=== PATIENT | male | born 1935 | race Asian ===

== ENCOUNTER 2022-08-11 23:28 | Inpatient (IN) | payer MEDICARE, MEDICAID, SELFPAY ==
--- NOTE | 2022-08-11 00:15 | RAD_ITS ---
INDICATION: dyspnea EXAMINATION/TECHNIQUE: X-RAY - XR Chest 1 View AP portable. 12:12 AM. COMPARISON: None. FINDINGS: LINES/DEVICES: Indwelling central venous catheter tip in the region of the SVC/right atrial junction. LUNGS: Consolidation in the left lung base. Patchy opacity in the right lung base. Small bilateral pleural effusions, greater on the left. No pneumothorax. MEDIASTINUM: Aorta tortuous and atherosclerotic. CARDIAC SILHOUETTE: Not enlarged. BONES AND SOFT TISSUES: No acute abnormalities. RAD/Chest 1 View (Portable) IMPRESSION: Left basilar consolidation and possible pneumonia. Small bilateral pleural effusions. Minimal right basilar atelectasis. Electronically Signed: Beverly Reid MD at 0:46 EST ,
[2022-08-11 23:30] VITALS: BP 109/65; PULSE 123; RESP 27; TEMP 37.2; O2SAT 98; BMI 22.7
[2022-08-11 23:36] VITALS: BP 109/65; PULSE 124; RESP 27; TEMP 37.1; O2SAT 98
--- NOTE | 2022-08-11 23:51 | EKG12_ITS ---
Test Reason : sob Blood Pressure : / mmHG Vent. Rate : 123 BPM Atrial Rate : 123 BPM P-R Int : 158 ms QRS Dur : 096 ms QT Int : 320 ms P-R-T Axes : 074 068 130 degrees QTc Int : 458 ms Sinus tachycardia with occasional Premature ventricular complexes Moderate voltage criteria for LVH, may be normal variant ( Sokolow-Aguilar , Willy product ) Nonspecific ST and T wave abnormality Abnormal ECG Confirmed by TOMASA GUPTA, ARTURO ([id number]), copy editor ARELIS LOGAN ([id number]) on 08/13/2022 1:19:23 PM Referred By: Confirmed By:ARTURO RANDOLPH MD
[2022-08-12] VITALS (29 sets, daily range): BP systolic 100–157; BP diastolic 63–87; PULSE 60–123; RESP 12–27; TEMP 36.6–37.2; O2SAT 95–100; BMI 21.0
[2022-08-12 00:20] LABS: Absolute Lymphocyte Count 1.57 X10^3/uL (0.83-4.51); Absolute Neutrophil Count 4.6 X10^3/uL (2.0-7.7); Basophil# 0.05 X10^3/uL; Basophil% 0.7 % (0-1); Eosinophil# 0.24 X10^3/uL; Eosinophils% 3.4 % (0-5); Hemoglobin 8.2 g/dL (13.0-16.5); Lymphocyte # 1.57 X10^3/ul (0.83-4.51); Lymphocyte % 22.1 % (19-41); Mean Corp Hgb Conc 30.4 g/dL (32-36); Mean Corpuscular Hgb 29.5 pg (27.0-32.0); Mean Corpuscular Volume 97.1 fL (80-94); Mean Platelet Vol. 10.1 fl (6.2-12.0); Monocyte# 0.63 X10^3/uL; Monocyte% 8.9 % (0-10); NRBC Flagged by Analyzer 0 % (0-5); Neutrophil # 4.58 X10^3/uL (2.7-7.7); Neutrophil % 64.5 % (47-70); POSITIVE MORPHOLOGY YES; Platelet Count 164 K/mm3 (150-450); RBC Distribution Width SD 74.9 fl (35.1-43.9); Red Blood Count 2.78 M/mm3 (4.6-6.2); White Blood Count 7.1 K/mm3 (4.4-11.0)
[2022-08-12 00:23] LABS: Differential Indicated SCAN CRITERIA MET
[2022-08-12 00:28] LABS: Anisocytosis 2+; Macrocytosis 1+
[2022-08-12 00:38] LABS: Anion Gap 6 (5-15); BUN 6 mg/dL (7-18); BUN/Creat Ratio 2.1 RATIO (10-20); Calcium,Total 8.5 mg/dL (8.5-10.1); Chloride 102 mmol/L (98-107); Creatinine, Serum 2.84 mg/dL (0.70-1.30); EST Glomerular Filtration Rate 23 mL/min (>60); Est Glom Filt Rate - Afr Amer 27 mL/min (>60); Estimated Creatinine Clearance 17.47 ml/min; Glucose 133 mg/dL (74-106); Magnesium 1.9 mg/dL (1.6-2.6); Phosphorus 2.1 mg/dL (2.5-4.9); Potassium 3.5 mmol/L (3.5-5.1); Sodium Level 138 mmol/L (136-145)
[2022-08-12 00:46] LABS: Procalcitonin 0.62 ng/mL (0.00-0.09)
--- NOTE | 2022-08-12 01:38 | CT_ITS ---
STUDY: CTA CHEST REASON FOR EXAM: Male, 86 years old. dyspnea hx:afib,diabetes,htn,ckd-on dialysis-rt nephrectomy RADIATION DOSAGE (If Supplied By Facility): CTDIvol = ( 15.97 ) mGy, DLP = ( 426.85 ) mGycm TECHNIQUE: The examination was performed with the intravenous administration of IV 75mL Isovue-370. Post-processing of the angiographic images was performed, with multiplanar reformation and 3D reconstruction. Individualized dose optimization techniques were used for this CT. COMPARISON: None. FINDINGS: Image degradation from positioning of the arms along the sides and respiratory motion. LUNGS: Large area of consolidation in the left lower lobe. Patchy groundglass opacities in the left upper lobe/lingula. Dependent atelectasis right lower lobe. Mild bronchial wall thickening bilaterally. PLEURA: Small bilateral pleural effusions greater on the left. No pneumothorax. PULMONARY VESSELS: No definite pulmonary emboli identified. MEDIASTINUM: A few prominent lymph nodes in the mediastinum and hilar regions. HEART: Not enlarged. Small pericardial effusion. AORTA/GREAT VESSELS: Thoracic aorta is normal caliber. The ascending aorta is 3.8 cm maximal. Extensive atherosclerotic calcifications, and bulky mural plaque/thrombus particularly at the distal arch and descending aorta. No aneurysm or dissection. UPPER ABDOMEN: Right kidney not identified, with presumed bowel in the right renal fossa, and small amount of fluid in the region. BONES/SOFT TISSUES: L1 marked compression fracture of uncertain age likely subacute or chronic. OTHER: None. CT/CTA Chest W/WO Contrast IMPRESSION: 1. No evidence of pulmonary emboli. 2. Left lower lobe consolidation consistent with pneumonia. Small bilateral pleural effusions. CT imaging follow-up recommended after treatment to confirm resolution. 3. L1 compression fracture of uncertain age possibly subacute. Electronically Signed: Beverly Reid MD at 2:40 EST ,
[2022-08-12 02:04] LABS: International Normalized Ratio 1.1; Prothrombin Time (Protime)PT. 14.3 SECONDS (11.7-14.9)
[2022-08-12 02:16] LABS: Partial Thromboplast Time 44.3 Seconds (24.1-36.2)
--- NOTE | 2022-08-12 02:29 | HP.PCM.HOS_ITS ---
[facility] - General General Date of Admission: 08/12/22 Date of Service: 08/12/22 Chief Complaint: SOB HPI Narrative BONITA BEDOLLA, is a 86 M who presents with the above. Patient is 86 years old with past medical history of ESRD on hemodialysis?Saturday?Saturday?Saturday who last had dialysis on the day of admission.. Patient also has past medical history of type II DM, hypertension, history of multiple GI bleeds, chronic indwelling Alba catheter, status post right nephrectomy. Patient was recently discharged from [facility] after admission for hypotension and altered mental status noticed during dialysis. Patient's insurance did not pay for SNF so he was discharged to [facility] on 08/09/22. Patient was reportedly normal on room air. He was said to be saturating 84% in the residential placed on 5 L of oxygen. Patient is a poor historian and family members are unavailable in his room at time of being seen. His vitals in the ED showed blood pressure 109/65, heart rate 123, respiratory 27, oxygen sat 98% on 10 L of oxygen. Obesity 7.1, hemoglobin 8.2, no previous to compare, platelets is 164, INR 1.1 BMP is unremarkable except for BUN of 6, creatinine 2.84, phosphorus 4.1, magnesium 1.9. Procalcitonin is 0.62 Admitting chest x-ray shows left basilar consolidation possible pneumonia, small bilateral pleural effusion, minimal right basilar atelectasis CTA of the chest shows no evidence of PE, left lower lobe consolidation consistent with pneumonia. Small bilateral pleural effusion. L1 compression fractures of undetermined age, possibly subacute. [facility] Medical History Afib Anemia Anxiety CKD (chronic kidney disease) stage V requiring chronic dialysis COPD (chronic obstructive pulmonary disease) GI bleed Hypertension Type 2 diabetes mellitus UTI (urinary tract infection) Home Medications acetylcysteine 200 mg/mL (20 %) solution 4 ml inhalation Q4H 08/11/22 [History Last Taken Unknown] atorvastatin 40 mg tablet 40 mg PO QHS 08/11/22 [History Last Taken Unknown] darbepoetin genia-albumin 60 mcg/0.3 mL in albumin injection syringe 60 mcg QWEEK 08/11/22 [History Last Taken Unknown] ipratropium 0.5 mg-albuterol 3 mg (2.5 mg base)/3 mL nebulization soln 3 ml inhalation Q6H PRN Wheezing 08/11/22 [History Last Taken Unknown] midodrine 10 mg tablet 10 mg PO QMWF 08/11/22 [History Last Taken Unknown] pantoprazole 40 mg tablet,delayed release 40 mg PO DAILY 08/11/22 [History Last Taken Unknown] rosuvastatin 20 mg tablet 20 mg PO DAILY 08/11/22 [History Last Taken Unknown] thiamine HCl (vitamin B1) 100 mg tablet 100 mg PO DAILY 08/11/22 [History Last Taken Unknown] vitamin B complex and vitamin C no.20-folic acid 1 mg capsule 1 cap PO DAILY 08/11/22 [History Last Taken Unknown] Allergy/AdvReac Type Severity Reaction Status Date / Time No Known Allergies Allergy Verified 08/11/22 23:30 Family History unable to obtain unable to obtain Surgical History History of right nephrectomy Social History (Updated 08/12/22 @ 03:[address] Carly Edwards MD) housing: residential Smoking Status: Never smoker alcohol intake: never substance use type: does not use Vital Signs Vital Signs Vital Signs: 08/11/22 23:30 08/11/22 23:36 08/12/22 00:06 Temperature 98.9 F 98.7 F Temperature Source Temporal Temporal Pulse Rate 123 H 124 H Respiratory Rate 27 H 27 H Respiratory Effort Short of Breath Respiratory Depth Shallow Respiratory Pattern Tachypnea Blood Pressure 109/65 109/65 Blood Pressure Mean 79 79 Pulse Ox 98 98 Oxygen Delivery Method Non-Rebreather Non-Rebreather Non-Rebreather Oxygen Flow Rate (L/min) 10 10 10 Fraction of Inspired Oxygen (FIO2) 08/12/22 00:00 08/12/22 00:12 08/12/22 00:37 Temperature 98.2 F Temperature Source Temporal Pulse Rate 123 H 116 H Respiratory Rate 26 H 27 H Respiratory Effort Respiratory Depth Respiratory Pattern Tachypnea Blood Pressure 114/66 Blood Pressure Mean 82 Pulse Ox 95 98 100 Oxygen Delivery Method Bi-pap Bi-pap Oxygen Flow Rate (L/min) Fraction of Inspired Oxygen (FIO2) 80 70 70 08/12/22 01:00 Temperature Temperature Source Pulse Rate 117 H Respiratory Rate 23 H Respiratory Effort Respiratory Depth Respiratory Pattern Blood Pressure 113/68 Blood Pressure Mean 83 Pulse Ox 100 Oxygen Delivery Method Room Air Oxygen Flow Rate (L/min) Fraction of Inspired Oxygen (FIO2) 70 Weight Weight: 63.9 kg Body Mass Index (BMI) 22.7 Physical Exam Narrative Physical exam: General: Alert, appears frail, on BiPAP HEENT: Atraumatic Oral: Moist Mucosa Neck: Supple Lungs: Diminished to auscultation Cardiovascular: HS I+II, regular, no murmurs Abdomen: Bowel Sounds Present, Soft, Non Tender Extremities: Bilateral pedal edema trace Skin: No rashes, No breakdown Neurological: Grossly intact Psych/Mental Status: Appropriate Results Lab / Micro Data Result Diagrams: 08/11/22 23:40 08/11/22 23:40 Labs: Laboratory Results - last 24 hr 08/11/22 23:40: WBC 7.1, RBC 2.78 L, Hgb 8.2 L, Hct 27.0 L, MCV 97.1 H, MCH 29.5, MCHC 30.4 L, RDW Std Deviation 74.9 H, RDW Coeff of Faiza 21.0 H, Plt Count 164, MPV 10.1, Immature Gran % (Auto) 0.400, Neut % (Auto) 64.5, Lymph % (Auto) 22.1, [place] % (Auto) 8.9, Eos % (Auto) 3.4, Baso % (Auto) 0.7, Absolute Neuts (auto) 4.6, Absolute Lymphs (auto) 1.57, Nucleated RBC % 0, Anisocytosis 2+, Ma crocytosis 1+ 08/11/22 23:40: Sodium 138, Potassium 3.5, Chloride 102, Carbon Dioxide 30.0, Anion Gap 6, BUN 6 L, Creatinine 2.84 H, Estim Creat Clear Calc 17.47, Est GFR (MDRD) Af Amer 27 L, Est GFR (MDRD) Non-Af 23 L, BUN/Creatinine Ratio 2.1 L, Gl ucose 133 H, Calcium 8.5, Phosphorus 2.1 L, Magnesium 1.9 08/11/22 23:40: PT 14.3, INR 1.1, APTT 44.3 H 08/12/22 00:05: Procalcitonin 0.62 H Radiology Impression Chest X-Ray 08/11/22 00:15 IMPRESSION: Left basilar consolidation and possible pneumonia. Small bilateral pleural effusions. Minimal right basilar atelectasis. Electronically Signed: Beverly Reid MD at 0:46 EST , Assessment & Plan Assessment/Plan (1) Acute respiratory failure with hypoxia: PLAN: Plan 1. Acute hypoxic respiratory failure likely secondary to fluid overload Patient is currently on BiPAP, 06/12, Fio2 CTA of the chest shows no evidence of PE, left lower lobe consolidation consistent with pneumonia. Small bilateral pleural effusion. Doubt pneumonia as patient recently completed antibiotics; probably septic shock in [facility] -we will obtain stat records Wean off which was more than 94%, continue with breathing treatments Fluid removal planned with dialysis 2. ESRD on HD, Saturday-Saturday?Saturday, extra dialysis planned tomorrow Retina Subspecialist consulted 3. Relative hypotension, not on BP meds continue midodrine 4. DVT PPx - Heparin SC Charges/Coding Visit Charges Inpatient E&M: 46935 Init Hosp L3
--- NOTE | 2022-08-12 02:51 | EX.ED.DYSGE1 ---
HPI History of Present Illness Chief Complaint: Shortness of Breath Narrative Narrative: Patient is an 86-year-old male with past medical history of chronic renal disease on dialysis who was recently sent to the assisted. Patient is nonverbal and history is obtained from assisted paperwork and family. Family states that he was recently at an outside hospital secondary to sepsis secondary to pneumonia. He was treated with IV antibiotics as well as oral antibiotics and receive dialysis following this. They state he was recently discharged to the assisted in the last 2 days. Nursing reports that today his oxygen level was low and secondary to this he was sent to the hospital for evaluation. [facility] Medical History Afib Anemia Anxiety CKD (chronic kidney disease) stage V requiring chronic dialysis COPD (chronic obstructive pulmonary disease) GI bleed Hypertension Type 2 diabetes mellitus UTI (urinary tract infection) Home Medications acetylcysteine 200 mg/mL (20 %) solution 4 ml inhalation Q4H 08/11/22 [History Last Taken Unknown] atorvastatin 40 mg tablet 40 mg PO QHS 08/11/22 [History Last Taken Unknown] darbepoetin genia-albumin 60 mcg/0.3 mL in albumin injection syringe 60 mcg QWEEK 08/11/22 [History Last Taken Unknown] ipratropium 0.5 mg-albuterol 3 mg (2.5 mg base)/3 mL nebulization soln 3 ml inhalation Q6H PRN Wheezing 08/11/22 [History Last Taken Unknown] midodrine 10 mg tablet 10 mg PO QMWF 08/11/22 [History Last Taken Unknown] pantoprazole 40 mg tablet,delayed release 40 mg PO DAILY 08/11/22 [History Last Taken Unknown] rosuvastatin 20 mg tablet 20 mg PO DAILY 08/11/22 [History Last Taken Unknown] thiamine HCl (vitamin B1) 100 mg tablet 100 mg PO DAILY 08/11/22 [History Last Taken Unknown] vitamin B complex and vitamin C no.20-folic acid 1 mg capsule 1 cap PO DAILY 08/11/22 [History Last Taken Unknown] Allergy/AdvReac Type Severity Reaction Status Date / Time No Known Allergies Allergy Verified 08/11/22 23:30 Surgical History History of right nephrectomy Social History (Updated 08/12/22 @ 03:[address] Carly Edwards MD) housing: assisted Smoking Status: Never smoker alcohol intake: never substance use type: does not use ROS ROS ED ROS Narrative Review of systems is unable to be obtained as patient is nonverbal and having signs of respiratory distress EXAM Physical Exam Const Vital Signs: 08/11/22 23:30 08/11/22 23:36 08/12/22 00:06 Temperature 98.9 F 98.7 F Temperature Source Temporal Temporal Pulse Rate 123 H 124 H Respiratory Rate 27 H 27 H Respiratory Effort Short of Breath Respiratory Depth Shallow Respiratory Pattern Tachypnea Blood Pressure 109/65 109/65 Blood Pressure Mean 79 79 Pulse Ox 98 98 Oxygen Delivery Method Non-Rebreather Non-Rebreather Non-Rebreather Oxygen Flow Rate (L/min) 10 10 10 Fraction of Inspired Oxygen (FIO2) 08/12/22 00:00 08/12/22 00:12 08/12/22 00:37 Temperature 98.2 F Temperature Source Temporal Pulse Rate 123 H 116 H Respiratory Rate 26 H 27 H Respiratory Effort Respiratory Depth Respiratory Pattern Tachypnea Blood Pressure 114/66 Blood Pressure Mean 82 Pulse Ox 95 98 100 Oxygen Delivery Method Bi-pap Bi-pap Oxygen Flow Rate (L/min) Fraction of Inspired Oxygen (FIO2) 80 70 70 08/12/22 01:00 08/12/22 02:00 Temperature Temperature Source Pulse Rate 117 H 106 H Respiratory Rate 23 H 22 H Respiratory Effort Respiratory Depth Respiratory Pattern Blood Pressure 113/68 126/66 H Blood Pressure Mean 83 86 Pulse Ox 100 100 Oxygen Delivery Method Room Air Bi-pap Oxygen Flow Rate (L/min) Fraction of Inspired Oxygen (FIO2) 70 70 Positive well nourished and well developed General Appearance ED: well developed HEENT Reports dry mucous membranes HEENT Narrative: No tongue or lip swelling no oral lesions no airway edema or compromise Mouth ED: Yes dry mucous membranes Mouth: dry mucous membranes Eyes PERRL and EOMs intact bilaterally General Eye ED: Yes pale conjunctiva Neck supple Neck Narrative: Trace JVD noted on right Chest Wall Chest Narrative: Dialysis catheter in place in the right chest wall without secondary changes to suggest infection Resp Resp Narrative: Patient is tachypneic with accessory muscle use. Breath sounds are diminished throughout with crackles in the bilateral bases Cardio regular rhythm Rate: tachycardic and other Other Details: Occasional ectopic beat noted GI normal to inspection, nondistended, normoactive bowel sounds, non-tender, non-distended and no masses GI Narrative: No voluntary guarding or rigidity no pulsatile mass Auscultation: normoactive bowel sounds Palpation: soft Extremity normal to inspection Neuro CN's II-XII intact bilaterally Sensorium / Orientation: alert Skin no rashes or lesions noted MDM MDM MDM Narrative Medical decision making narrative: Patient presented to the ER tachypneic with accessory muscle use and requiring 10 L by nonrebreather to keep his pulse ox above 90%. On exam he has crackles in the bilateral bases and with his history of dialysis there is concern for fluid overload and heart failure as the cause of his symptoms. Therefore patient was transitioned to BiPAP. The BiPAP reduce the patient's work of breathing and increase his oxygen value to 100%. Basic blood work was obtained because of the history of pneumonia/sepsis and his new onset respiratory failure. His hemoglobin is low at 8.2 but with his history of chronic renal disease this is to be expected. He does not have a white count and his procalcitonin is not elevated and he has no signs of severe electrolyte derangement. He does have a history of atrial fibrillation however and with his hypoxia and recent hospital stay and infection there is concern he may have a PE as a cause. Secondary to this a CTA was obtained which did not show any type of PE. It did document the bilateral pleural effusions along with changes in the left lung concerning for infection. However as the patient was recently just discharged on the second of this month with this diagnosis of infection I feel this is retained from that initial hospital stay and will take weeks to clear and as he did not have a fever or white count or true elevation to his procalcitonin does not require antibiotics. The case was also discussed with nephrology who agrees to perform dialysis on the patient sometime today as he will be undergoing a CTA. At this time as the patient is requiring noninvasive ventilation and supplemental oxygen he cannot be discharged back to the assisted and therefore will be admitted to the unit for further care of his acute respiratory failure with hypoxia secondary to fluid overload Lab Data Attestation: I reviewed the patient's lab results. Labs: Laboratory Results - last 24 hr 08/11/22 08/11/22 08/11/22 23:40 23:40 23:40 WBC 7.1 RBC 2.78 L Hgb 8.2 L Hct 27.0 L MCV 97.1 H MCH 29.5 MCHC 30.4 L RDW Std Deviation 74.9 H RDW Coeff of Faiza 21.0 H Plt Count 164 MPV 10.1 Immature Gran % (Auto) 0.400 Neut % (Auto) 64.5 Lymph % (Auto) 22.1 [place] % (Auto) 8.9 Eos % (Auto) 3.4 Baso % (Auto) 0.7 Absolute Neuts (auto) 4.6 Absolute Lymphs (auto) 1.57 Nucleated RBC % 0 Anisocytosis 2+ Macrocytosis 1+ PT 14.3 INR 1.1 APTT 44.3 H Sodium 138 Potassium 3.5 Chloride 102 Carbon Dioxide 30.0 Anion Gap 6 BUN 6 L Creatinine 2.84 H Estim Creat Clear Calc 17.47 Est GFR (MDRD) Af Amer 27 L Est GFR (MDRD) Non-Af 23 L BUN/Creatinine Ratio 2.1 L Glucose 133 H Calcium 8.5 Phosphorus 2.1 L Magnesium 1.9 Procalcitonin 08/12/22 00:05 WBC RBC Hgb Hct MCV MCH MCHC RDW Std Deviation RDW Coeff of Faiza Plt Count MPV Immature Gran % (Auto) Neut % (Auto) Lymph % (Auto) [place] % (Auto) Eos % (Auto) Baso % (Auto) Absolute Neuts (auto) Absolute Lymphs (auto) Nucleated RBC % Anisocytosis Macrocytosis PT INR APTT Sodium Potassium Chloride Carbon Dioxide Anion Gap BUN Creatinine Estim Creat Clear Calc Est GFR (MDRD) Af Amer Est GFR (MDRD) Non-Af BUN/Creatinine Ratio Glucose Calcium Phosphorus Magnesium Procalcitonin 0.62 H Radiography Diagnostic Testing: Clinical Impression(s) from Imaging Studies Chest X-Ray 08/11/22 00:15 IMPRESSION: Left basilar consolidation and possible pneumonia. Small bilateral pleural effusions. Minimal right basilar atelectasis. Electronically Signed: Beverly Reid MD at 0:46 EST , Chest CTA 08/12/22 01:38 IMPRESSION: 1. No evidence of pulmonary emboli. 2. Left lower lobe consolidation consistent with pneumonia. Small bilateral pleural effusions. CT imaging follow-up recommended after treatment to confirm resolution. 3. L1 compression fracture of uncertain age possibly subacute. Electronically Signed: Beverly Reid MD at 2:40 EST , 1 view chest x-ray as interpreted by the emergency medicine physician reveals bilateral pleural effusions with left-sided consolidation Critical Care Time Critical Care Time: Yes Critical care time (excluding procedures): Discussing w/Patient &/or Family/Deposit Refund Clerk, Discussing w/Consultants and - (Please note critical care time of 33 minutes) Discharge Plan Dx/Rx/DC Orders Clinical Impression: Acute respiratory failure with hypoxia, Chronic kidney disease with end stage renal failure on dialysis, Pleural effusion, bilateral Disposition Disposition: Acute Care [facility] Discharge Date/Time: 08/12/22 03:53
[2022-08-12] MEDS: Heparin Injection (Vial) 5,000 UNIT/ML VIAL 5000 UNIT SC ×3 (06:22→21:26)
[2022-08-12] MEDS: Folic Acid/Vitamin B Comp W-C 1 Capsule 1 CAP PO (09:02)
[2022-08-12] MEDS: Pantoprazole Sodium 40 MG Tablet PO (09:02)
[2022-08-12] MEDS: Thiamine Hydrochloride 100 MG Tablet PO (09:02)
--- NOTE | 2022-08-12 14:21 | PCM.PN.BLA ---
Progress Note Off of BiPAP and blood pressures have been stable. Awaiting evaluation by nephrology for possible dialysis today but he does appear stable enough to be transferred out of PCU.
--- NOTE | 2022-08-12 19:31 | PCM.CONS.R ---
Assessment & Plan Assessment/Plan (1) Chronic kidney disease with end stage renal failure on dialysis: PLAN: on HD MWF schedule as per admission records. Will call detention tomorrow. no acute indications for HD today. Electrolytes are ok. volume status is ok. dw granddaughter at bedside HPI Consult Data Date of Consult: 08/12/22 HPI Narrative Reason for Consultation: ESRD HPI Narrative: BONITA BEDOLLA, is a 86 M who presents to the hospital with ESRD. ESRD on HD. most of history is from granddaughter at bedside. has been on HD for about 3 months now. was initially in [facility] recently moved to [facility]. admitted with dyspnea. initial suspicion for PE but CTPE negative. not much history of available otherwise. looks comfortable saturating well on RA [facility] Medical History Afib Anemia Anxiety CKD (chronic kidney disease) stage V requiring chronic dialysis COPD (chronic obstructive pulmonary disease) GI bleed Hypertension Type 2 diabetes mellitus UTI (urinary tract infection) Home Medications acetylcysteine 200 mg/mL (20 %) solution 4 ml inhalation Q4H 08/11/22 [History Last Taken Unknown] atorvastatin 40 mg tablet 40 mg PO QHS 08/11/22 [History Last Taken Unknown] darbepoetin genia-albumin 60 mcg/0.3 mL in albumin injection syringe 60 mcg QWEEK 08/11/22 [History Last Taken Unknown] ipratropium 0.5 mg-albuterol 3 mg (2.5 mg base)/3 mL nebulization soln 3 ml inhalation Q6H PRN Wheezing 08/11/22 [History Last Taken Unknown] midodrine 10 mg tablet 10 mg PO QMWF 08/11/22 [History Last Taken Unknown] pantoprazole 40 mg tablet,delayed release 40 mg PO DAILY 08/11/22 [History Last Taken Unknown] rosuvastatin 20 mg tablet 20 mg PO DAILY 08/11/22 [History Last Taken Unknown] thiamine HCl (vitamin B1) 100 mg tablet 100 mg PO DAILY 08/11/22 [History Last Taken Unknown] vitamin B complex and vitamin C no.20-folic acid 1 mg capsule 1 cap PO DAILY 08/11/22 [History Last Taken Unknown] Allergy/AdvReac Type Severity Reaction Status Date / Time No Known Allergies Allergy Verified 08/11/22 23:30 Family History unable to obtain Surgical History History of right nephrectomy Social History (Updated 08/12/22 @ 03:[address] Carly Edwards MD) housing: detention Smoking Status: Never smoker alcohol intake: never substance use type: does not use ROS ROS Narrative negative except above Physical Exam Narrative Alert awake no obvious distress no pallor no icterus no JVD s1s2 no murmurs lungs clear abdomen soft no organomegaly no edema no cyanosis Lab / Micro Data Result Diagrams: 08/11/22 23:40 02 23:40 Labs: Laboratory Results - last 24 hr 08/11/22 23:40: WBC 7.1, RBC 2.78 L, Hgb 8.2 L, Hct 27.0 L, MCV 97.1 H, MCH 29.5, MCHC 30.4 L, RDW Std Deviation 74.9 H, RDW Coeff of Faiza 21.0 H, Plt Count 164, MPV 10.1, Immature Gran % (Auto) 0.400, Neut % (Auto) 64.5, Lymph % (Auto) 22.1, [place] % (Auto) 8.9, Eos % (Auto) 3.4, Baso % (Auto) 0.7, Absolute Neuts (auto) 4.6, Absolute Lymphs (auto) 1.57, Nucleated RBC % 0, Anisocytosis 2+, Macrocytosis 1+ 08/11/22 23:40: Sodium 138, Potassium 3.5, Chloride 102, Carbon Dioxide 30.0, Anion Gap 6, BUN 6 L, Creatinine 2.84 H, Estim Creat Clear Calc 17.47, Est GFR (MDRD) Af Amer 27 L, Est GFR (MDRD) Non-Af 23 L, BUN/Creatinine Ratio 2.1 L, Glucose 133 H, Calcium 8.5, Phosphorus 2.1 L, Magnesium 1.9 08/11/22 23:40: PT 14.3, INR 1.1, APTT 44.3 H 08/12/22 00:05: Procalcitonin 0.62 H Radiology Impression Chest X-Ray 08/11/22 00:15 IMPRESSION: Left basilar consolidation and possible pneumonia. Small bilateral pleural effusions. Minimal right basilar atelectasis. Electronically Signed: Beverly Reid MD at 0:46 EST , Chest CTA 08/12/22 01:38 IMPRESSION: 1. No evidence of pulmonary emboli. 2. Left lower lobe consolidation consistent with pneumonia. Small bilateral pleural effusions. CT imaging follow-up recommended after treatment to confirm resolution. 3. L1 compression fracture of uncertain age possibly subacute. Electronically Signed: Beverly Reid MD at 2:40 EST ,
[2022-08-12 23:40] LABS: Bedside Glucose 107 mg/dL (74-106)
[2022-08-13] VITALS (14 sets, daily range): BP systolic 102–130; BP diastolic 55–69; PULSE 80–104; RESP 12–26; TEMP 36.4–36.7; O2SAT 90–100
[2022-08-13] MEDS: Heparin Injection (Vial) 5,000 UNIT/ML VIAL 5000 UNIT SC ×3 (05:15→21:45)
[2022-08-13] MEDS: 0.9% Saline Lock 10 ML Syringe IV (05:16)
[2022-08-13 06:44] LABS: Absolute Lymphocyte Count 1.04 X10^3/uL (0.83-4.51); Absolute Neutrophil Count 4.2 X10^3/uL (2.0-7.7); Basophil# 0.07 X10^3/uL; Basophil% 1.1 % (0-1); Eosinophil# 0.39 X10^3/uL; Eosinophils% 6.3 % (0-5); Hemoglobin 8.1 g/dL (13.0-16.5); Lymphocyte # 1.04 X10^3/ul (0.83-4.51); Lymphocyte % 16.9 % (19-41); Mean Corp Hgb Conc 32.4 g/dL (32-36); Mean Corpuscular Hgb 30.9 pg (27.0-32.0); Mean Corpuscular Volume 95.4 fL (80-94); Mean Platelet Vol. 9.3 fl (6.2-12.0); Monocyte# 0.42 X10^3/uL; Monocyte% 6.8 % (0-10); NRBC Flagged by Analyzer 0 % (0-5); Neutrophil # 4.22 X10^3/uL (2.7-7.7); Neutrophil % 68.6 % (47-70); POSITIVE MORPHOLOGY YES; Platelet Count 155 K/mm3 (150-450); RBC Distribution Width CV 21.1 % (11.6-14.6); RBC Distribution Width SD 73.5 fl (35.1-43.9); Red Blood Count 2.62 M/mm3 (4.6-6.2); White Blood Count 6.2 K/mm3 (4.4-11.0)
[2022-08-13 07:17] LABS: Anion Gap 6 (5-15); BUN 12 mg/dL (7-18); BUN/Creat Ratio 3.2 RATIO (10-20); Calcium,Total 8.5 mg/dL (8.5-10.1); Chloride 102 mmol/L (98-107); Creatinine, Serum 3.78 mg/dL (0.70-1.30); EST Glomerular Filtration Rate 16 mL/min (>60); Est Glom Filt Rate - Afr Amer 20 mL/min (>60); Estimated Creatinine Clearance 12.74 ml/min; Glucose 66 mg/dL (74-106); Potassium 4.1 mmol/L (3.5-5.1); Sodium Level 138 mmol/L (136-145)
[2022-08-13 07:35] LABS: Differential Indicated SCAN CRITERIA MET
[2022-08-13 07:47] LABS: Anisocytosis 2+; Macrocytosis 1+
[2022-08-13] MEDS: Midodrine HCl 5 MG Tablet 10 MG PO (08:26)
[2022-08-13] MEDS: Pantoprazole Sodium 40 MG Tablet PO (08:26)
[2022-08-13] MEDS: Folic Acid/Vitamin B Comp W-C 1 Capsule 1 CAP PO (08:27)
[2022-08-13] MEDS: Thiamine Hydrochloride 100 MG Tablet PO (08:27)
--- NOTE | 2022-08-13 14:57 | PCM.PN.REN ---
Subjective Subjective No new events. Looks comfortable on nasal cannula. Objective Data Objective Data Vital Signs: Vital Signs Temp Pulse Resp BP Pulse Ox O2 Del Method O2 Flow Rate 97.5 F L 91 20 H 124/67 H 93 Nasal Cannula 2 08/13/22 08:00 08/13/22 08:00 08/13/22 10:00 08/13/22 08:00 08/13/22 10:00 08/13/22 10:00 08/13/22 10:00 FiO2 40 08/13/22 07:26 Oxygen Flow Rate (L/min) 2 Oxygen Delivery Method Nasal Cannula Weight: 61.9 kg Body Mass Index (BMI) 21.0 Intake & Output: Intake and Output for Last 24 Hours 08/11/22 08/12/22 08/13/22 23:59 23:59 23:59 Intake Total 0 / 0 Output Total 0 / 0 Balance 0 / 0 Lab / Micro Data Result Diagrams: 08/13/22 05:50 08/13/22 05:50 Labs: Laboratory Results - last 24 hr 08/12/22 20:14: POC Glucose 107 H 08/13/22 05:50: WBC 6.2, RBC 2.62 L, Hgb 8.1 L, Hct 25.0 L, MCV 95.4 H, MCH 30.9, MCHC 32.4 D, RDW Std Deviation 73.5 H, RDW Coeff of Faiza 21.1 H, Plt Count 155, MPV 9.3, Immature Gran % (Auto) 0.300, Neut % (Auto) 68.6, Lymph % (Auto) 16.9 L, [place] % (Auto) 6.8, Eos % (Auto) 6.3 H, Baso % (Auto) 1.1 H, Absolute Neuts (auto) 4.2, Absolute Lymphs (auto) 1.04, Nucleated RBC % 0, Anisocytosis 2+, Macrocytosis 1+ 08/13/22 05:50: Sodium 138, Potassium 4.1, Chloride 102, Carbon Dioxide 30.0, Anion Gap 6, BUN 12, Creatinine 3.78 H, Estim Creat Clear Calc 12.74, Est GFR (MDRD) Af Amer 20 L, Est GFR (MDRD) Non-Af 16 L, BUN/Creatinine Ratio 3.2 L, Glucose 66 L, Calcium 8.5 Physical Exam Narrative Alert awake no obvious distress no pallor no icterus no JVD s1s2 no murmurs lungs clear abdomen soft no organomegaly no edema no cyanosis Assessment & Plan Assessment/Plan (1) Chronic kidney disease with end stage renal failure on dialysis: PLAN: History of ESRD, has been on dialysis for about 3 months now. Initially he was in assisted [facility]. Recently moved to [facility] to be closer to family. In the meantime had some insurance issues, was admitted to [facility], discharged on Saturday. Came in here next day with shortness of breath. CT PE protocol negative. Overall breathing status is better. Fluid removal as tolerated today. Discharged back to assisted when medically stable
--- NOTE | 2022-08-13 15:02 | PCM.PN.HOSP ---
Subjective Subjective Patient is an 86-year-old gentleman with history of end-stage renal disease on hemodialysis Wednesdays brought to the emergency department with hypoxia Objective Data Objective Data Vital Signs: Vital Signs Temp Pulse Resp BP Pulse Ox O2 Del Method O2 Flow Rate 97.5 F L 91 20 H 124/67 H 93 Nasal Cannula 2 08/13/22 08:00 08/13/22 08:00 08/13/22 10:00 08/13/22 08:00 08/13/22 10:00 08/13/22 10:00 08/13/22 10:00 FiO2 40 08/13/22 07:26 Oxygen Flow Rate (L/min) 2 Oxygen Delivery Method Nasal Cannula Weight: 61.9 kg Body Mass Index (BMI) 21.0 Intake & Output: Intake and Output for Last 24 Hours 08/11/22 08/12/22 08/13/22 23:59 23:59 23:59 Intake Total 0 / 0 Output Total 0 / 0 Balance 0 / 0 Lab / Micro Data Result Diagrams: 08/13/22 05:50 08/13/22 05:50 Labs: Laboratory Results - last 24 hr 08/12/22 20:14: POC Glucose 107 H 08/13/22 05:50: WBC 6.2, RBC 2.62 L, Hgb 8.1 L, Hct 25.0 L, MCV 95.4 H, MCH 30.9, MCHC 32.4 D, RDW Std Deviation 73.5 H, RDW Coeff of Faiza 21.1 H, Plt Count 155, MPV 9.3, Immature Gran % (Auto) 0.300, Neut % (Auto) 68.6, Lymph % (Auto) 16.9 L, [place] % (Auto) 6.8, Eos % (Auto) 6.3 H, Baso % (Auto) 1.1 H, Absolute Neuts (auto) 4.2, Absolute Lymphs (auto) 1.04, Nucleated RBC % 0, Anisocytosis 2+, Macrocytosis 1+ 08/13/22 05:50: Sodium 138, Potassium 4.1, Chloride 102, Carbon Dioxide 30.0, Anion Gap 6, BUN 12, Creatinine 3.78 H, Estim Creat Clear Calc 12.74, Est GFR (MDRD) Af Amer 20 L, Est GFR (MDRD) Non-Af 16 L, BUN/Creatinine Ratio 3.2 L, Glucose 66 L, Calcium 8.5 Physical Exam Narrative GENERAL: Noncommunicative HEENT: Atraumatic; normocephalic EYES; Anicteric, Normal Conjunctiva NECK; supple, normal thyroid, RESPIRATORY: Diminished to auscultation CARDIOVASCULAR: Regular S1 S2, GI: soft, normoactive bowel sounds, : No Renal angle tenderness; EXTREMITIES: No edema, no clubbing, MUSCULOSKELETAL: no muscle wasting NEURO: Awake; no lateralizing signs. SKIN: No Rash PSYCH; Flat affect Assessment & Plan Assessment/Plan (1) Acute respiratory failure with hypoxia: PLAN: Plan Patient is an 86-year-old gentleman with history of end-stage renal disease on hemodialysis Wednesdays brought to the emergency department with hypoxia 1. Acute hypoxia ? Secondary to fluid overload as well as pneumonia 2. Fluid overload ? Secondary to congestive heart failure possibly with preserved ejection fraction consult placed to nephrology plan is to manage patient excess fluid through dialysis 3. Lower lobe consolidation ? Patient recently managed as a case of pneumonia in [place]. He was however afebrile without leukocytosis plan is to continue to monitor 4. Anemia - Secondary to chronic disorder monitoring H&H and transfuse if patient becomes symptomatic or hemoglobin falls below 7 5. Dyslipidemia -Patient is on statin therapy, continued at home dose 6. Paroxysmal A-fib ? Rate controlled not on systemic anticoagulation 7. COPD ? Currently not in exacerbation aerosol treatments as needed 7. Essential hypertension ? Per history patient currently not on any antihypertensives. Patient apparently has hypotension and receives midodrine prior to dialysis 9. Diabetes mellitus type 2 ? Managed with diet 10. GERD ? Patient on PPI 11. DVT prophylaxis ? SC heparin Time spent in the patient's overall evaluation,decision-making process, review of diagnostic data, adjustment of management, discussion with other providers, nursing nursing and ancillary staff involved in patient's care documentation, 55 Minutes Charges/Coding Visit Charges Inpatient E&M: 90276 Subs Hosp L3 Reason for Visit Reason for Visit: Diagnoses Acute respiratory failure with hypoxia (08/12/22) End stage renal disease (08/12/22) Dependence on renal dialysis (08/12/22)
--- NOTE | 2022-08-13 16:09 | CASEMGMT ---
Social Work SW met with pt to discuss discharge plan. Pt unable to talk with SW. Phone call to pt dgt Lena. Lena states pt was at [facility] and discharged to [facility]. Pt had been at [facility] just 24 hours. Per Lena, plan is to return to [facility]. Updated clinicals sent to [facility] via [facility] and message sent to confirm accepting pt back and if new precert will be needed to return. SW to continue to follow for d/c planning. Plan: [facility], pending precert SHERON Kwok
--- NOTE | 2022-08-13 16:16 | DIALYSIS ---
Hemodialysis x3.5 hours completed at 1545 on a 3K bath, tolerated well, UF 1100mL, CritLine maintained profile A, accessed via right chest tunneled dialysis catheter, worked well
[2022-08-13] MEDS: Atorvastatin Calcium 40 MG Tablet PO (21:45)
--- NOTE | 2022-08-13 22:46 | CPS ---
Pt already has a PEP in room , however there is a language barrier. RN tried to explain it to family. Not sure if they instructed pt or not. RT will continue to try.
[2022-08-14] VITALS (7 sets, daily range): BP systolic 112–122; BP diastolic 58–61; PULSE 80–93; RESP 16–18; TEMP 36.6–36.9; O2SAT 89–100
--- NOTE | 2022-08-14 02:14 | CPS ---
RN took pt off bipap at 0120, per pt request.
[2022-08-14] MEDS: Heparin Injection (Vial) 5,000 UNIT/ML VIAL 5000 UNIT SC ×2 (05:55→13:51)
[2022-08-14 08:15] LABS: Absolute Lymphocyte Count 1.38 X10^3/uL (0.83-4.51); Absolute Neutrophil Count 4.1 X10^3/uL (2.0-7.7); Basophil# 0.08 X10^3/uL; Basophil% 1.2 % (0-1); Eosinophils% 6.2 % (0-5); Hemoglobin 8.2 g/dL (13.0-16.5); Lymphocyte # 1.38 X10^3/ul (0.83-4.51); Lymphocyte % 21.2 % (19-41); Mean Corp Hgb Conc 31.5 g/dL (32-36); Mean Corpuscular Hgb 29.8 pg (27.0-32.0); Mean Corpuscular Volume 94.5 fL (80-94); Mean Platelet Vol. 9.9 fl (6.2-12.0); Monocyte# 0.54 X10^3/uL; Monocyte% 8.3 % (0-10); NRBC Flagged by Analyzer 0 % (0-5); Neutrophil # 4.08 X10^3/uL (2.7-7.7); Neutrophil % 62.8 % (47-70); POSITIVE MORPHOLOGY YES; Platelet Count 165 K/mm3 (150-450); RBC Distribution Width CV 20.8 % (11.6-14.6); RBC Distribution Width SD 71.8 fl (35.1-43.9); Red Blood Count 2.75 M/mm3 (4.6-6.2); White Blood Count 6.5 K/mm3 (4.4-11.0)
[2022-08-14 08:17] LABS: Differential Indicated SCAN CRITERIA MET
[2022-08-14 08:26] LABS: Anion Gap 8 (5-15); BUN 7 mg/dL (7-18); Calcium,Total 8.3 mg/dL (8.5-10.1); Chloride 101 mmol/L (98-107); Creatinine, Serum 2.32 mg/dL (0.70-1.30); EST Glomerular Filtration Rate 29 mL/min (>60); Est Glom Filt Rate - Afr Amer 35 mL/min (>60); Estimated Creatinine Clearance 20.25 ml/min; Glucose 65 mg/dL (74-106); Phosphorus 2.3 mg/dL (2.5-4.9); Potassium 3.1 mmol/L (3.5-5.1); Sodium Level 139 mmol/L (136-145)
--- NOTE | 2022-08-14 08:33 | PN.HOSP_ITS ---
Subjective Subjective Patient seen had a relatively uneventful night. Plan is for patient to be discharged home. Objective Data Objective Data Vital Signs: Vital Signs Temp Pulse Resp BP Pulse Ox O2 Del Method O2 Flow Rate 98.5 F 84 16 122/61 H 98 Nasal Cannula 2 08/14/22 03:59 08/14/22 03:59 08/14/22 03:59 08/14/22 03:59 08/14/22 03:59 08/14/22 03:59 08/14/22 03:59 FiO2 40 08/13/22 22:00 Oxygen Flow Rate (L/min) 2 Oxygen Delivery Method Nasal Cannula Weight: 60.4 kg Body Mass Index (BMI) 21.0 Intake & Output: Intake and Output for Last 24 Hours 08/12/22 08/13/22 08/14/22 23:59 23:59 23:59 Intake Total 0 / 0 220 / 340 120 / 120 Output Total 0 / 0 2100 / 2100 0 / 0 Balance 0 / 0 -1880 / -1760 120 / 120 Lab / Micro Data Result Diagrams: 08/14/22 06:50 08/14/22 06:50 Labs: Laboratory Results - last 24 hr 08/14/22 06:50: WBC 6.5, RBC 2.75 L, Hgb 8.2 L, Hct 26.0 L, MCV 94.5 H, MCH 29.8, MCHC 31.5 L, RDW Std Deviation 71.8 H, RDW Coeff of Faiza 20.8 H, Plt Count 165, MPV 9.9, Immature Gran % (Auto) 0.300, Neut % (Auto) 62.8, Lymph % (Auto) 21.2, [place] % (Auto) 8.3, Eos % (Auto) 6.2 H, Baso % (Auto) 1.2 H, Absolute Neuts (auto) 4.1, Absolute Lymphs (auto) 1.38, Nucleated RBC % 0 08/14/22 06:50: Sodium 139, Potassium 3.1 L, Chloride 101, Carbon Dioxide 30.0, Anion Gap 8, BUN 7, Creatinine 2.32 H, Estim Creat Clear Calc 20.25, Est GFR (MDRD) Af Amer 35 L, Est GFR (MDRD) Non-Af 29 L, BUN/Creatinine Ratio 3.0 L, Gl ucose 65 L, Calcium 8.3 L, Phosphorus 2.3 L, Magnesium 2.0 Physical Exam Narrative GENERAL: Noncommunicative HEENT: Atraumatic; normocephalic EYES; Anicteric, Normal Conjunctiva NECK; supple, normal thyroid, RESPIRATORY: Diminished to auscultation CARDIOVASCULAR: Regular S1 S2, GI: soft, normoactive bowel sounds, : No Renal angle tenderness; EXTREMITIES: No edema, no clubbing, MUSCULOSKELETAL: no muscle wasting NEURO: Awake; no lateralizing signs. SKIN: No Rash PSYCH; Flat affect Assessment & Plan Assessment/Plan (1) Acute respiratory failure with hypoxia: PLAN: Plan Patient is an 86-year-old gentleman with history of end-stage renal disease on hemodialysis Wednesdays brought to the emergency department with hypoxia 1. Acute hypoxia ? Secondary to fluid overload as well as pneumonia 2. Fluid overload ? Secondary to congestive heart failure possibly with preserved ejection fraction consult placed to nephrology plan is to manage patient excess fluid through dialysis 3. Lower lobe consolidation ? Patient recently managed as a case of pneumonia in [place]. He was however afebrile without leukocytosis plan is to continue to monitor 4. Anemia - Secondary to chronic disorder monitoring H&H and transfuse if patient becomes symptomatic or hemoglobin falls below 7 5. Dyslipidemia -Patient is on statin therapy, continued at home dose 6. Paroxysmal A-fib ? Rate controlled not on systemic anticoagulation 7. COPD ? Currently not in exacerbation aerosol treatments as needed 7. Essential hypertension ? Per history patient currently not on any antihypertensives. Patient apparently has hypotension and receives midodrine prior to dialysis 9. Diabetes mellitus type 2 ? Managed with diet 10. GERD ? Patient on PPI 11. DVT prophylaxis ? SC heparin Time spent in the patient's overall evaluation,decision-making process, review of diagnostic data, adjustment of management, discussion with other providers, nursing nursing and ancillary staff involved in patient's care documentation, 55 Minutes Charges/Coding Visit Charges Inpatient E&M: 08526 Subs Hosp L2 Reason for Visit Reason for Visit: Diagnoses Acute respiratory failure with hypoxia (08/12/22) End stage renal disease (08/12/22) Dependence on renal dialysis (08/12/22)
[2022-08-14 08:37] LABS: Anisocytosis 3+; Differential Comment SCANNED; Hypochromasia 2+; Target Cells 2+
[2022-08-14] MEDS: Potassium Chloride 10mEq/100mL 10 MEQ/100 ML IV.SOLN. 100 MEQ IV BOLUS ×4 (10:38→14:50)
[2022-08-14] MEDS: Folic Acid/Vitamin B Comp W-C 1 Capsule 1 CAP PO (10:39)
[2022-08-14] MEDS: Pantoprazole Sodium 40 MG Tablet PO (10:39)
[2022-08-14] MEDS: Thiamine Hydrochloride 100 MG Tablet PO (10:39)
--- NOTE | 2022-08-14 11:02 | PCM.PN.REN ---
Subjective Subjective No new events. Objective Data Objective Data Vital Signs: Vital Signs Temp Pulse Resp BP Pulse Ox O2 Del Method O2 Flow Rate 98.1 F 93 16 112/58 L 100 Nasal Cannula 2 08/14/22 09:59 08/14/22 09:59 08/14/22 10:26 08/14/22 09:59 08/14/22 09:59 08/14/22 10:26 08/14/22 10:26 FiO2 40 08/13/22 22:00 Oxygen Flow Rate (L/min) 2 Oxygen Delivery Method Nasal Cannula Weight: 60.4 kg Body Mass Index (BMI) 21.0 Intake & Output: Intake and Output for Last 24 Hours 08/12/22 08/13/22 08/14/22 23:59 23:59 23:59 Intake Total 0 / 0 220 / 340 120 / 120 Output Total 0 / 0 2100 / 2100 0 / 0 Balance 0 / 0 -1880 / -1760 120 / 120 Lab / Micro Data Result Diagrams: 08/14/22 06:50 08/14/22 06:50 Labs: Laboratory Results - last 24 hr 08/14/22 06:50: WBC 6.5, RBC 2.75 L, Hgb 8.2 L, Hct 26.0 L, MCV 94.5 H, MCH 29.8, MCHC 31.5 L, RDW Std Deviation 71.8 H, RDW Coeff of Afiza 20.8 H, Plt Count 165, MPV 9.9, Immature Gran % (Auto) 0.300, Neut % (Auto) 62.8, Lymph % (Auto) 21.2, [place] % (Auto) 8.3, Eos % (Auto) 6.2 H, Baso % (Auto) 1.2 H, Absolute Neuts (auto) 4.1, Absolute Lymphs (auto) 1.38, Nucleated RBC % 0, Differential Comment SCANNED, Hypochromasia 2+, Anisocytosis 3+, Target Cells 2+ 08/14/22 06:50: Sodium 139, Potassium 3.1 L, Chloride 101, Carbon Dioxide 30.0, Anion Gap 8, BUN 7, Creatinine 2.32 H, Estim Creat Clear Calc 20.25, Est GFR (MDRD) Af Amer 35 L, Est GFR (MDRD) Non-Af 29 L, BUN/Creatinine Ratio 3.0 L, Glucose 65 L, Calcium 8.3 L, Phosphorus 2.3 L, Magnesium 2.0 Physical Exam Narrative Alert awake no obvious distress no pallor no icterus no JVD s1s2 no murmurs lungs clear abdomen soft no organomegaly no edema no cyanosis Assessment & Plan Assessment/Plan (1) Chronic kidney disease with end stage renal failure on dialysis: PLAN: History of ESRD, has been on dialysis for about 3 months now. [facility]. Recently moved to [facility] to be closer to family. In the meantime had some insurance issues, was admitted to [facility], discharged on Saturday. Came in here next day with shortness of breath. CT PE protocol negative. Overall breathing status is better. CT chest showed consolidation of left lower lobe of the lung for which she was treated at [facility]. Clinically better overall. Hypokalemia. After dialysis. Will likely need to use 3K bath. No need for repletion today. Okay to discharge from nephrology standpoint
--- NOTE | 2022-08-14 11:42 | PCM.TXEXTCAR ---
Diet Diet Order/Speech Therapy: 08/12/22 13:06 Diet: Renal - General Is pt able to select menu?: No Wound(s) coccyx: Wound Type: Pressure Injury Therapies Physical Therapy: Eval and Treat Occupational Therapy: Eval and Treat Speech Therapy: Eval and Treat Problem/Diagnosis (1) Acute respiratory failure with hypoxia: Status: Acute Code(s): J96.01 - Acute respiratory failure with hypoxia Plan Patient is an 86-year-old gentleman with history of end-stage renal disease on hemodialysis Wednesdays brought to the emergency department with hypoxia 1. Acute hypoxia ? Secondary to fluid overload as well as pneumonia 2. Fluid overload ? Secondary to congestive heart failure possibly with preserved ejection fraction consult placed to nephrology plan is to manage patient excess fluid through dialysis 3. Lower lobe consolidation ? Patient recently managed as a case of pneumonia in [place]. He was however afebrile without leukocytosis plan is to continue to monitor 4. Anemia - Secondary to chronic disorder monitoring H&H and transfuse if patient becomes symptomatic or hemoglobin falls below 7 5. Dyslipidemia -Patient is on statin therapy, continued at home dose 6. Paroxysmal A-fib ? Rate controlled not on systemic anticoagulation 7. COPD ? Currently not in exacerbation aerosol treatments as needed 7. Essential hypertension ? Per history patient currently not on any antihypertensives. Patient apparently has hypotension and receives midodrine prior to dialysis 9. Diabetes mellitus type 2 ? Managed with diet 10. GERD ? Patient on PPI 11. DVT prophylaxis ? SC heparin Time spent in the patient's overall evaluation,decision-making process, review of diagnostic data, adjustment of management, discussion with other providers, nursing nursing and ancillary staff involved in patient's care documentation, 55 Minutes Allergies/Procedures Done in Hospital Allergies No Known Allergies Allergy (Verified 08/11/22 23:30) Type of Care/Length of Stay Estimated LOS: More Than 30 Days Type of Care Needed: Skilled Rehab Potential: Fair Prognosis: Fair Additional Orders/Day of Discharge Day of Discharge: 08/14/22 Dietary and Speech Recommendations Dietitian Recommendations/Changes: As medically able, rec SABI to Consistent CHO / Renal - no protein restriction w/ 4 oz Nepro CHO Steady at meals tid Rec Jason bid to help w/ wound healing. Discharge Plan Admission Admit Date/Time: 08/12/22 02:13 Attending Provider: Wiley Garcia Primary Care Provider: Augusta Cr Consulting Providers: Carly Edwards ; Charo Angel ; Vidal Morales Discharge Orders/Prescriptions Prescriptions: Continued atorvastatin 40 mg Tablet 40 mg PO QHS acetylcysteine 200 mg/mL (20 %) Solution 4 ml INHALATION Q4H ipratropium-albuterol 0.5 mg-3 mg(2.5 mg base)/3 mL Solution For Nebulization 3 ml INHALATION Q6H PRN (Reason: Wheezing) thiamine HCl (vitamin B1) 100 mg Tablet 100 mg PO DAILY pantoprazole 40 mg Tablet,Delayed Release (Dr/Ec) 40 mg PO DAILY B complex with C 20-folic acid 1 mg Capsule 1 cap PO DAILY midodrine 10 mg Tablet 10 mg PO QMWF Rx Instructions: SAT,SAT, SAT darbepoetin genia-albumin 60 mcg/0.3 mL Syringe 60 mcg QWEEK Rx Instructions: sq, ON SATURDAY rosuvastatin 20 mg Tablet 20 mg PO DAILY Referrals / Follow Up: Augusta Cr MD [Primary Care Provider] - Within 2 Weeks Disposition Disposition (needs filled in before D/C Order can be placed): [facility]
--- NOTE | 2022-08-14 11:45 | PCM.DC.SUM ---
Providers Date of Admission: 08/12/22 Date of Discharge: 08/14/22 Primary Care Physician: Dr. Augusta Cr MD Consultations 08/12/22 04:11 Consult: Nephrology Routine Consulting Provider: Charo Angel Reason for Consult: ESRD on HD EMERGENT Consult: No MD Notified: Yes Date Notified: 08/12/22 Time Notified: 09:51 Method of Notification: Answering Service 08/12/22 06:13 Consult: Onc/Wound/rate engineer Routine Comment: pressure ulcer coccyx Reason For Visit: ACUTE HYPOXIC RESPIRATORY FAILURE Diagnosis Discharge Diagnosis (1) Acute respiratory failure with hypoxia: Status: Acute Code(s): J96.01 - Acute respiratory failure with hypoxia Plan Patient is an 86-year-old gentleman with history of end-stage renal disease on hemodialysis Wednesdays brought to the emergency department with hypoxia 1. Acute hypoxia ? Secondary to fluid overload as well as pneumonia 2. Fluid overload ? Secondary to congestive heart failure possibly with preserved ejection fraction consult placed to nephrology plan is to manage patient excess fluid through dialysis 3. Lower lobe consolidation ? Patient recently managed as a case of pneumonia in [place]. He was however afebrile without leukocytosis plan is to continue to monitor 4. Anemia - Secondary to chronic disorder monitoring H&H and transfuse if patient becomes symptomatic or hemoglobin falls below 7 5. Dyslipidemia -Patient is on statin therapy, continued at home dose 6. Paroxysmal A-fib ? Rate controlled not on systemic anticoagulation 7. COPD ? Currently not in exacerbation aerosol treatments as needed 7. Essential hypertension ? Per history patient currently not on any antihypertensives. Patient apparently has hypotension and receives midodrine prior to dialysis 9. Diabetes mellitus type 2 ? Managed with diet 10. GERD ? Patient on PPI 11. DVT prophylaxis ? SC heparin Time spent in the patient's overall evaluation,decision-making process, review of diagnostic data, adjustment of management, discussion with other providers, nursing nursing and ancillary staff involved in patient's care documentation, 35Minutes Medications at Discharge Home Medications acetylcysteine 200 mg/mL (20 %) solution 4 ml inhalation Q4H 08/11/22 atorvastatin 40 mg tablet 40 mg PO QHS 08/11/22 darbepoetin genia-albumin 60 mcg/0.3 mL in albumin injection syringe 60 mcg QWEEK 08/11/22 ipratropium 0.5 mg-albuterol 3 mg (2.5 mg base)/3 mL nebulization soln 3 ml inhalation Q6H PRN Wheezing 08/11/22 midodrine 10 mg tablet 10 mg PO QMWF 08/11/22 pantoprazole 40 mg tablet,delayed release 40 mg PO DAILY 08/11/22 rosuvastatin 20 mg tablet 20 mg PO DAILY 08/11/22 thiamine HCl (vitamin B1) 100 mg tablet 100 mg PO DAILY 08/11/22 vitamin B complex and vitamin C no.20-folic acid 1 mg capsule 1 cap PO DAILY 08/11/22 Hospital Course Summary of Care Provided Minutes Spent on Discharge: 35 Physical Exam Narrative GENERAL: Noncommunicative HEENT: Atraumatic; normocephalic EYES; Anicteric, Normal Conjunctiva NECK; supple, normal thyroid, RESPIRATORY: Diminished to auscultation CARDIOVASCULAR: Regular S1 S2, GI: soft, normoactive bowel sounds, : No Renal angle tenderness; EXTREMITIES: No edema, no clubbing, MUSCULOSKELETAL: no muscle wasting NEURO: Awake; no lateralizing signs. SKIN: No Rash PSYCH; Flat affect Weight / BMI Weight Weight: 60.4 kg Body Mass Index (BMI) 21.0 ABG / Lab / Microbiology Data Result Diagrams: 08/14/22 06:50 08/14/22 06:50 Laboratory: Laboratory Results - last 24 hr 08/14/22 06:50: WBC 6.5, RBC 2.75 L, Hgb 8.2 L, Hct 26.0 L, MCV 94.5 H, MCH 29.8, MCHC 31.5 L, RDW Std Deviation 71.8 H, RDW Coeff of [place] 20.8 H, Plt Count 165, MPV 9.9, Immature Gran % (Auto) 0.300, Neut % (Auto) 62.8, Lymph % (Auto) 21.2, [place] % (Auto) 8.3, Eos % (Auto) 6.2 H, Baso % (Auto) 1.2 H, Absolute Neuts (auto) 4.1, Absolute Lymphs (auto) 1.38, Nucleated RBC % 0, Differential Comment SCANNED, Hypochromasia 2+, Anisocytosis 3+, Target Cells 2+ 08/14/22 06:50: Sodium 139, Potassium 3.1 L, Chloride 101, Carbon Dioxide 30.0, Anion Gap 8, BUN 7, Creatinine 2.32 H, Estim Creat Clear Calc 20.25, Est GFR (MDRD) Af Amer 35 L, Est GFR (MDRD) Non-Af 29 L, BUN/Creatinine Ratio 3.0 L, Glucose 65 L, Calcium 8.3 L, Phosphorus 2.3 L, Magnesium 2.0 D/C Instructions Discharge Diet: Renal Diet Discharge Activity: Return to Normal Activity Call your doctor if you observe: Fever of 101 or Higher, Shortness of breath, Fainting spells and Chest pain Meaningful Use Info Meaningful Use Diagnoses (Choose all that apply): None applicable Discharge Plan Admission Admit Date/Time: 08/12/22 02:13 Attending Provider: Wiley Garcia Primary Care Provider: Augusta Cr Consulting Providers: Carly Edwards ; Charo Angel ; Vidal Morales Discharge Orders/Prescriptions Prescriptions: Continued atorvastatin 40 mg Tablet 40 mg PO QHS acetylcysteine 200 mg/mL (20 %) Solution 4 ml INHALATION Q4H ipratropium-albuterol 0.5 mg-3 mg(2.5 mg base)/3 mL Solution For Nebulization 3 ml INHALATION Q6H PRN (Reason: Wheezing) thiamine HCl (vitamin B1) 100 mg Tablet 100 mg PO DAILY pantoprazole 40 mg Tablet,Delayed Release (Dr/Ec) 40 mg PO DAILY B complex with C 20-folic acid 1 mg Capsule 1 cap PO DAILY midodrine 10 mg Tablet 10 mg PO QMWF Rx Instructions: SAT,SAT, SAT darbepoetin genia-albumin 60 mcg/0.3 mL Syringe 60 mcg QWEEK Rx Instructions: sq, ON SATURDAY rosuvastatin 20 mg Tablet 20 mg PO DAILY Referrals / Follow Up: Augusta Cr MD [Primary Care Provider] - Within 2 Weeks Disposition Disposition (needs filled in before D/C Order can be placed): Assisted Facility Charges/Coding Visit Charges Inpatient E&M: 24990 Disch Hosp >30min
--- NOTE | 2022-08-14 13:53 | PHA.DC.MR ---
Pharmacy Service has performed discharge medication reconciliation for this patient. The patient's discharge medication list was reviewed for discrepancies and discrepancies were resolved. Home Medications acetylcysteine 200 mg/mL (20 %) solution 4 ml inhalation Q4H 08/11/22 atorvastatin 40 mg tablet 40 mg PO QHS 08/11/22 darbepoetin genia-albumin 60 mcg/0.3 mL in albumin injection syringe 60 mcg QWEEK 08/11/22 ipratropium 0.5 mg-albuterol 3 mg (2.5 mg base)/3 mL nebulization soln 3 ml inhalation Q6H PRN Wheezing 08/11/22 midodrine 10 mg tablet 10 mg PO QMWF 08/11/22 pantoprazole 40 mg tablet,delayed release 40 mg PO DAILY 08/11/22 rosuvastatin 20 mg tablet 20 mg PO DAILY 08/11/22 thiamine HCl (vitamin B1) 100 mg tablet 100 mg PO DAILY 08/11/22 vitamin B complex and vitamin C no.20-folic acid 1 mg capsule 1 cap PO DAILY 08/11/22
--- NOTE | 2022-08-14 13:55 | CASEMGMT ---
Patient is ready for discharge back to [facility]. SW sent orders to [facility] via [facility]. SW arranged for patient to get picked up at 4p via cot. SW notified patient's daughter Lena, bowling alley refinisher, Chanelle at [facility], and RN. Plan: d/c back to [facility] under skilled level of care. Physicians transported via cot. Latoya Matos [employer]
--- NOTE | 2022-08-14 15:29 | WOUNDNOTE ---
wound photo: sacrum
== END 2022-08-14 16:03 | disposition skilled nursing facility (03) | DRG 291 ==
LOC: ED 08-12 02:51 → ICU 08-12 03:33 → PCU 08-12 18:45 → ICU 08-14 16:18 → PCU 08-14 16:18
PROVIDERS: Family Medicine; Admitting Provider Internal Medicine; Emergency Provider Emergency Medicine; PCP Internal Medicine; Visit Provider Internal Medicine
DX: I13.2 Hypertensive heart and chronic kidney disease with heart failure and with stage 5 chronic kidney disease, or end stage renal disease (principal); N18.6 End stage renal disease; D63.8 Anemia in other chronic diseases classified elsewhere; E11.22 Type 2 diabetes mellitus with diabetic chronic kidney disease; I50.32 Chronic diastolic (congestive) heart failure; I48.0 Paroxysmal atrial fibrillation; J44.9 Chronic obstructive pulmonary disease, unspecified; Z99.2 Dependence on renal dialysis; E78.5 Hyperlipidemia, unspecified; K21.9 Gastro-esophageal reflux disease without esophagitis; E87.6 Hypokalemia; R09.02 Hypoxemia; Z79.899 Other long term (current) drug therapy; Z90.5 Acquired absence of kidney
CPT/HCPCS: 36415; 71045; 71275; 80048; 82962; 83735; 84100; 84145; 85025; 85610; 85730; 90937; 93005; 94002; 94003; 94668; 94762; 99285; J7040; Q9967; A4216; G0257

== ENCOUNTER 2022-08-19 23:00 | Inpatient (IN) | payer MEDICARE, MEDICAID, SELFPAY ==
[2022-08-19 23:02] VITALS: BP 122/62; PULSE 145; RESP 32; TEMP 39.4; O2SAT 93; BMI 22.8
[2022-08-19 23:06] VITALS: BP 122/62; PULSE 145; RESP 31; TEMP 39.4; O2SAT 90
[2022-08-19 23:26] VITALS: PULSE 147; RESP 12; RESP 32; O2SAT 95
[2022-08-19 23:28] VITALS: O2SAT 95
[2022-08-19 23:32] LABS: Mucous, Urine 0 SEEN /hpf (<or=2+)
--- NOTE | 2022-08-19 23:33 | RAD_ITS ---
EXAM: XR CHEST, 1 VIEW CLINICAL INDICATION: SOB TECHNIQUE: Frontal view of the chest. This report was created using [employer] report generation technology. COMPARISON: Portable chest radiograph and CTA chest of 08/12/2022. FINDINGS: LUNGS AND PLEURAL SPACES: The retrocardiac consolidation of the left lower lobe has worsened since the prior study; the retrocardiac region is now densely opacified by pneumonia and atelectasis. Minimal streaky infiltrate has developed within the right mid to upper lung, most likely atelectasis. Minimal patchy airspace disease has also developed in the right infrahilar region, worrisome for pneumonia. Small-moderate bilateral pleural effusions are present, left greater than right, with minimal increase in size of the pleural effusions since the prior study. No pneumothorax. HEART: Heart size remains upper normal. There is pruning of the peripheral pulmonary vascular markings consistent with pulmonary emphysema. No pulmonary venous hypertension. MEDIASTINUM: Stable elongation and calcification of the thoracic aorta. BONES/JOINTS: L1 compression fracture again noted, most likely chronic. SOFT TISSUES: Unremarkable. RAD/Chest 1 View (Portable) IMPRESSION: 1. Minimal interval enlargement of the bilateral pleural effusions. 2. Worsening infiltrate in the retrocardiac portion of the left lower lobe, consistent with worsening pneumonia and atelectasis. 3. Development of minimal patchy airspace disease in the right infrahilar region, suspicious for developing pneumonia. Electronically Signed: Daivd Miguel MD at 23:59 EST ,
--- NOTE | 2022-08-19 23:35 | EKG12_ITS ---
Test Reason : TACHYCARDIA Blood Pressure : / mmHG Vent. Rate : 141 BPM Atrial Rate : 141 BPM P-R Int : 120 ms QRS Dur : 090 ms QT Int : 288 ms P-R-T Axes : 063 078 053 degrees QTc Int : 441 ms Sinus tachycardia Minimal voltage criteria for LVH, may be normal variant ( Holliday product ) Borderline ECG When compared with ECG of 12-AUG-2022 00:06, Premature ventricular complexes are no longer Present Nonspecific T wave abnormality no longer evident in Lateral leads Confirmed by TOMASA GUPTA, ARTURO ([id number]), editor at large ARELIS LOGAN ([id number]) on 08/21/2022 7:44:46 AM Referred By: Confirmed By:ARTURO RANDOLPH MD
[2022-08-19 23:36] LABS: Color, Urine Yellow (Yellow); Glucose, Dipstick 50 mg/dl (Normal); Ketone-Dipstick Negative (Negative); Leukocyte Esterase-Dipstick 500 /ul (Negative); Nitrite-Dipstick Negative (Negative); Occult Blood-Urine 150 /ul (Negative); Protein-Dipstick 500 mg/dl (Negative); Urine Bilirubin Dipstick Negative (Negative); Urine Clarity Clear (Clear); Urine Urobilinogen Normal (Normal); Urine pH 6.5 (5.0 - 8.0)
[2022-08-19 23:37] LABS: Absolute Lymphocyte Count 0.28 X10^3/uL (0.83-4.51); Absolute Neutrophil Count 2.1 X10^3/uL (2.0-7.7); Basophil# 0.01 X10^3/uL; Basophil% 0.4 % (0-1); Eosinophil# 0.01 X10^3/uL; Eosinophils% 0.4 % (0-5); Hematocrit 27.1 % (40-54); Hemoglobin 8.8 g/dL (13.0-16.5); Lymphocyte # 0.28 X10^3/ul (0.83-4.51); Lymphocyte % 10.2 % (19-41); Mean Corp Hgb Conc 32.5 g/dL (32-36); Mean Corpuscular Hgb 30.2 pg (27.0-32.0); Mean Corpuscular Volume 93.1 fL (80-94); Mean Platelet Vol. 9.3 fl (6.2-12.0); Monocyte# 0.37 X10^3/uL; Monocyte% 13.5 % (0-10); NRBC Flagged by Analyzer 0 % (0-5); Neutrophil # 2.06 X10^3/uL (2.7-7.7); Neutrophil % 75.1 % (47-70); POSITIVE DIFFERENTIAL YES; POSITIVE MORPHOLOGY YES; Platelet Count 153 K/mm3 (150-450); RBC Distribution Width CV 19.3 % (11.6-14.6); RBC Distribution Width SD 66.4 fl (35.1-43.9); Red Blood Count 2.91 M/mm3 (4.6-6.2); White Blood Count 2.7 K/mm3 (4.4-11.0)
[2022-08-19 23:44] LABS: Differential Indicated SCAN CRITERIA MET
[2022-08-19] MEDS: Acetaminophen 650 MG Suppository RC (23:47)
[2022-08-19] MEDS: Vancomycin IV 1,000 MG/200 ML BAG 200 MG IV (23:48)
[2022-08-19 23:58] VITALS: O2SAT 95
[2022-08-20] VITALS (42 sets, daily range): BP systolic 77–141; BP diastolic 49–72; PULSE 91–140; RESP 12–32; TEMP 35.6–38.9; O2SAT 90–100; BMI 20.8
[2022-08-20 00:01] LABS: Lactic Acid 0.6 mmol/L (0.4-1.9)
[2022-08-20 00:06] LABS: Anisocytosis 2+
[2022-08-20 00:12] LABS: Anion Gap 9 (5-15); BUN 30 mg/dL (7-18); BUN/Creat Ratio 7.7 RATIO (10-20); Calcium,Total 8.6 mg/dL (8.5-10.1); Chloride 99 mmol/L (98-107); Creatinine, Serum 3.92 mg/dL (0.70-1.30); EST Glomerular Filtration Rate 16 mL/min (>60); Est Glom Filt Rate - Afr Amer 19 mL/min (>60); Estimated Creatinine Clearance 12.66 ml/min; Glucose 92 mg/dL (74-106); Potassium 4.2 mmol/L (3.5-5.1); Sodium Level 137 mmol/L (136-145)
[2022-08-20 00:46] LABS: Bacteria 2+ /hpf (None Seen); Red Blood Cells-Urine 0-5 SEEN /hpf (0-5); Squamous Epithelial Cells - UA 0-5 SEEN /hpf (0-5); White Blood Cells 50-100 SEEN /hpf (0-5)
--- NOTE | 2022-08-20 01:44 | HP.PCM.HOS_ITS ---
HPI - General General Date of Admission: 08/20/22 Date of Service: 08/20/22 Chief Complaint: fever HPI Narrative BONITA BEDOLLA, is a 86 M with a significant history of atrial fibrillation; end-stage renal disease on dialysis who presents to the emergency department from the long-term with a fever. On 08/12/2022 patient was admitted to the hospital and discharged on 08/14/2019 2030 to long-term. Before this admission on 08/12/2022 patient had been admitted about a [facility] where he was found to be sep tic and had renal failure requiring dialysis. He was eventually discharged to long-term. On dyspnea presentation on 08/19/2022 reportedly patient was also hypoxic at the long-term and had elevated heart rate. Also patient had dyspnea. Report was taken from patient's daughter who was at the bedside since patient was on the BiPAP and was not contributing to history. Reportedly oxygen's saturation was 70%. She was placed on the BiPAP at emergency department. [facility] Medical History Afib Anemia Anxiety CKD (chronic kidney disease) stage V requiring chronic dialysis COPD (chronic obstructive pulmonary disease) GI bleed Hypertension Type 2 diabetes mellitus UTI (urinary tract infection) Home Medications acetylcysteine 200 mg/mL (20 %) solution 4 ml inhalation Q4H 08/11/22 [History Last Taken Unknown] atorvastatin 40 mg tablet 40 mg PO QHS 08/11/22 [History Last Taken Unknown] darbepoetin genia-albumin 60 mcg/0.3 mL in albumin injection syringe 60 mcg QWEEK 08/11/22 [History Last Taken Unknown] ipratropium 0.5 mg-albuterol 3 mg (2.5 mg base)/3 mL nebulization soln 3 ml inhalation Q6H PRN Wheezing 08/11/22 [History Last Taken Unknown] midodrine 10 mg tablet 10 mg PO QMWF 08/11/22 [History Last Taken Unknown] pantoprazole 40 mg tablet,delayed release 40 mg PO DAILY 08/11/22 [History Last Taken Unknown] rosuvastatin 20 mg tablet 20 mg PO DAILY 08/11/22 [History Last Taken Unknown] thiamine HCl (vitamin B1) 100 mg tablet 100 mg PO DAILY 08/11/22 [History Last Taken Unknown] vitamin B complex and vitamin C no.20-folic acid 1 mg capsule 1 cap PO DAILY 08/11/22 [History Last Taken Unknown] vitamin B complex and vitamin C no.20-folic acid 1 mg capsule 1 cap PO DAILY 08/19/22 [History Last Taken Unknown] Allergy/AdvReac Type Severity Reaction Status Date / Time No Known Allergies Allergy Verified 08/11/22 23:30 Surgical History History of right nephrectomy Social History housing: long-term Smoking Status: Never smoker alcohol intake: never substance use type: does not use ROS Review of Systems ROS Unobtainable: other Details: Pertinent positives and pertinent negatives that could be provided by patient's family is as noted in HPI. All other systems were reviewed patient's family did not know or they were negative. Vital Signs Vital Signs Vital Signs: 08/19/22 23:02 08/19/22 23:06 08/19/22 23:06 Temperature 102.9 F H 102.9 F H 102.9 F H Temperature Source Axillary Axillary Axillary Pulse Rate 145 H 145 H 145 H Respiratory Rate 32 H 31 H 31 H Respiratory Pattern Blood Pressure 122/62 H 122/62 H 122/62 H Blood Pressure Mean 82 82 82 Pulse Ox 93 90 90 Oxygen Delivery Method Non-Rebreather Non-Rebreather Non-Rebreather Fraction of Inspired Oxygen (FIO2) 08/19/22 23:26 08/19/22 23:28 08/20/22 00:01 Temperature Temperature Source Pulse Rate 147 H 140 H Respiratory Rate 32 H 30 H Respiratory Pattern Tachypnea Blood Pressure 134/66 H Blood Pressure Mean 88 Pulse Ox 95 95 93 Oxygen Delivery Method Bi-pap Bi-pap Fraction of Inspired Oxygen (FIO2) 100 100 08/20/22 00:05 08/19/22 23:58 08/20/22 01:10 Temperature 102.0 F H 100.5 F H Temperature Source Tympanic Core Pulse Rate 139 H 128 H Respiratory Rate 29 H 29 H Respiratory Pattern Blood Pressure 134/66 H 101/57 L Blood Pressure Mean 88 71 Pulse Ox 93 95 92 Oxygen Delivery Method Bi-pap Bi-pap Bi-pap Fraction of Inspired Oxygen (FIO2) 50 08/20/22 01:10 Temperature Temperature Source Pulse Rate 129 H Respiratory Rate 29 H Respiratory Pattern Blood Pressure Blood Pressure Mean Pulse Ox 92 Oxygen Delivery Method Bi-pap Fraction of Inspired Oxygen (FIO2) Weight Weight: 64.3 kg Body Mass Index (BMI) 22.8 Physical Exam Narrative Physical exam: General: Well-nourished, well-developed. Head: Normocephalic, atraumatic, no tenderness Eyes: Vision is grossly intact. EOMI ENT, no trauma, no rhinorrhea Neck: Nontender, No thyromegaly. CVS: Tachycardia. Irregularly irregular rate and rhythm. Respiratory : Tachypnea, on BiPAP. Diminished respiration. Abdomen: Soft, nontender, nondistended, normal bowel sounds, no masses : Large coccygeal wound with eschar on top. Alba catheter with grossly cloudy urine. Back: Nontender, no CVA tenderness. Extremities: Deep tissue injury on left heel. no trauma Skin: Dry skin. No Abrasions Neuro: Hypoalert on BiPAP. Does not respond to questions. Open eyes spontaneously intermittently. Psychiatry: Normal mood. Normal affect. Not depressed. Not anxious. Results Lab / Micro Data Result Diagrams: 08/19/22 23:15 08/19/22 23:15 Labs: Laboratory Results - last 24 hr 08/19/22 23:15: WBC 2.7 L, RBC 2.91 L, Hgb 8.8 L, Hct 27.1 L, MCV 93.1, MCH 30.2, MCHC 32.5, RDW Std Deviation 66.4 H, RDW Coeff of Faiza 19.3 H, Plt Count 153, MPV 9.3, Immature Gran % (Auto) 0.400, Neut % (Auto) 75.1 H, Lymph % (Auto) 10.2 L, [place] % (Auto) 13.5 H, Eos % (Auto) 0.4, Baso % (Auto) 0.4, Absolute Neuts (auto) 2.1, Absolute Lymphs (auto) 0.28 L, Nucleated RBC % 0, Diff Path Review May foll, Anisocytosis 2+ 08/19/22 23:15: Sodium 137, Potassium 4.2, Chloride 99, Carbon Dioxide 29.0, Anion Gap 9, BUN 30 H, Creatinine 3.92 H, Estim Creat Clear Calc 12.66, Est GFR (MDRD) Af Amer 19 L, Est GFR (MDRD) Non-Af 16 L, BUN/Creatinine Ratio 7.7 L, Glucose 92, Calcium 8.6 08/19/22 23:15: Lactic Acid 0.6 08/19/22 23:25: Urine Color Yellow, Urine Clarity Clear, Urine pH 6.5, Ur Specific [place] 1.010, Urine Protein 500 H, Urine Glucose (UA) 50 H, Urine Ketones Negative, Urine Occult Blood 150 H, Urine Nitrite Negative, Urine Bilirubin Negative, Urine Urobilinogen Normal, Ur Leukocyte Esterase 500 H, Urine RBC 0-5 SEEN, Urine WBC 50-100 SEEN, Ur Squamous Epith Cells 0-5 SEEN, Urine Bacteria 2+, Urine Mucus 0 SEEN Micro: Microbiology 08/19/22 23:30 Nasal Secretion SARS-CoV-2 & FLU Antigen (Rapid) - Final Radiology Impression Chest X-Ray 08/19/22 23:33 IMPRESSION: 1. Minimal interval enlargement of the bilateral pleural effusions. 2. Worsening infiltrate in the retrocardiac portion of the left lower lobe, consistent with worsening pneumonia and atelectasis. 3. Development of minimal patchy airspace disease in the right infrahilar region, suspicious for developing pneumonia. Electronically Signed: David Miguel MD at 23:59 EST , Assessment & Plan Assessment/Plan (1) Chronic kidney disease with end stage renal failure on dialysis: (2) Septicemia: (3) Pneumonia: (4) Acute respiratory failure with hypoxia: PLAN: Plan Acute hypoxemic respiratory failure/pneumonia/sepsis The patient presented with sepsis due to (pneumonia) with acute sepsis related organ dysfunction as evidenced by (acute respiratory failure; systolic blood pressure of less than 90.). SIRS criteria: Temperature more than 100.9 Fahrenheit (Tmax of 102.9 Fahrenheit at Emergency Department) Respiratory rate more than 20 (highest respiratory rate of 32) Heart rate more than 90 3 (heart rate of 147) WBC of less than 4000 (white count of 2700) organ dysfunction: Acute respiratory failure for which reason he was placed on the BiPAP on the emergency department. Of note lactic acid was only 0.6. Of note patient is dialysis patients and would not give full 30 mm/kg bolus. Normal saline 500 MLS bolus ordered for now. A-fib RVR Normal saline hydration bolus ordered. Patient has a history of GI bleed will not start on therapeutic anticoagulation. Consider amiodarone bolus and drip ordered if patient remains in A-fib with RVR. Of note blood pressures are soft and will not start patient on a Cardizem drip. Unstageable sacrococcygeal wound in deep tissue injury of left 40 Wet to dry dressing on sacrococcygeal area. Continue foam to bilateral heels. End-stage renal disease on dialysis Reportedly last dialysis was on Saturday to 04/26/2023 Nephrology consults. DVT prophylaxis: Subcutaneous Lovenox ordered. Charges/Coding Visit Charges Inpatient E&M: 87639 Init Hosp L3
--- NOTE | 2022-08-20 01:46 | EDS_ITS ---
HPI History of Present Illness Chief Complaint: Shortness of Breath Narrative Narrative: Patient is an 86-year-old male who was sent in from skilled nursing secondary to respiratory distress. In July he was admitted to an outside hospital secondary to sepsis and he developed end-stage renal disease with need for dialysis. Shortly after his discharge from that hospital to the skilled nursing he was then sent to this ER for worsening shortness of breath. At that time he was found to have fluid overload leading to respiratory distress and was admitted to the hospital. He was discharged from here and return to the skilled nursing. Nursing states that this morning they noticed he was having increased work of breathing. skilled nursing states that on his normal oxygen his pulse ox was in the 70s and he was febrile. The patient cannot offer any further history as he does not speak. Family at this time states he is still a full code and that he is at his baseline mental status [facility] Medical History Afib Anemia Anxiety CKD (chronic kidney disease) stage V requiring chronic dialysis COPD (chronic obstructive pulmonary disease) GI bleed Hypertension Type 2 diabetes mellitus UTI (urinary tract infection) Home Medications acetylcysteine 200 mg/mL (20 %) solution 4 ml inhalation Q4H 08/11/22 [History Last Taken Unknown] atorvastatin 40 mg tablet 40 mg PO QHS 08/11/22 [History Last Taken Unknown] darbepoetin genia-albumin 60 mcg/0.3 mL in albumin injection syringe 60 mcg QWEEK 08/11/22 [History Last Taken Unknown] ipratropium 0.5 mg-albuterol 3 mg (2.5 mg base)/3 mL nebulization soln 3 ml inhalation Q6H PRN Wheezing 08/11/22 [History Last Taken Unknown] midodrine 10 mg tablet 10 mg PO QMWF 08/11/22 [History Last Taken Unknown] pantoprazole 40 mg tablet,delayed release 40 mg PO DAILY 08/11/22 [History Last Taken Unknown] rosuvastatin 20 mg tablet 20 mg PO DAILY 08/11/22 [History Last Taken Unknown] thiamine HCl (vitamin B1) 100 mg tablet 100 mg PO DAILY 08/11/22 [History Last Taken Unknown] vitamin B complex and vitamin C no.20-folic acid 1 mg capsule 1 cap PO DAILY 08/11/22 [History Last Taken Unknown] vitamin B complex and vitamin C no.20-folic acid 1 mg capsule 1 cap PO DAILY 08/19/22 [History Last Taken Unknown] Allergy/AdvReac Type Severity Reaction Status Date / Time No Known Allergies Allergy Verified 08/11/22 23:30 Surgical History History of right nephrectomy Social History housing: skilled nursing Smoking Status: Never smoker alcohol intake: never substance use type: does not use ROS ROS ED ROS Narrative Review of systems cannot be obtained as patient is nonverbal Review of Systems ROS Unobtainable: due to mental status EXAM Physical Exam Const Vital Signs: 08/19/22 23:02 08/19/22 23:06 08/19/22 23:06 Temperature 102.9 F H 102.9 F H 102.9 F H Temperature Source Axillary Axillary Axillary Pulse Rate 145 H 145 H 145 H Respiratory Rate 32 H 31 H 31 H Respiratory Effort Respiratory Depth Respiratory Pattern Blood Pressure 122/62 H 122/62 H 122/62 H Blood Pressure Mean 82 82 82 Pulse Ox 93 90 90 Oxygen Delivery Method Non-Rebreather Non-Rebreather Non-Rebreather Fraction of Inspired Oxygen (FIO2) 08/19/22 23:26 08/19/22 23:28 08/20/22 00:01 Temperature Temperature Source Pulse Rate 147 H 140 H Respiratory Rate 32 H 30 H Respiratory Effort Respiratory Depth Respiratory Pattern Tachypnea Blood Pressure 134/66 H Blood Pressure Mean 88 Pulse Ox 95 95 93 Oxygen Delivery Method Bi-pap Bi-pap Fraction of Inspired Oxygen (FIO2) 100 100 08/20/22 00:05 08/19/22 23:58 08/20/22 01:10 Temperature 102.0 F H 100.5 F H Temperature Source Tympanic Core Pulse Rate 139 H 128 H Respiratory Rate 29 H 29 H Respiratory Effort Respiratory Depth Respiratory Pattern Blood Pressure 134/66 H 101/57 L Blood Pressure Mean 88 71 Pulse Ox 93 95 92 Oxygen Delivery Method Bi-pap Bi-pap Bi-pap Fraction of Inspired Oxygen (FIO2) 50 08/20/22 01:10 08/19/22 23:10 Temperature Temperature Source Pulse Rate 129 H Respiratory Rate 29 H Respiratory Effort Short of Breath Labored Accessory Muscle Use Respiratory Depth Shallow Respiratory Pattern Hyperpnea Blood Pressure Blood Pressure Mean Pulse Ox 92 Oxygen Delivery Method Bi-pap Bi-pap Fraction of Inspired Oxygen (FIO2) Positive well nourished and well developed General Appearance ED: well developed HEENT Reports dry mucous membranes HEENT Narrative: No tongue or lip swelling no oral lesions no airway edema or compromise Mouth ED: Yes dry mucous membranes Mouth: dry mucous membranes Eyes PERRL and EOMs intact bilaterally Neck supple Neck Narrative: Mild JVD noted bilaterally Chest Wall palpation of chest normal Chest Narrative: There is a dialysis catheter present in the right chest wall without surrounding secondary changes to suggest infection Resp Resp Narrative: Breath sounds are diminished throughout but severely diminished on the left. There is rhonchi and crackles present diffusely. Patient has tachypnea and accessory muscle use noted Cardio regular rhythm Rate: tachycardic GI non-tender GI Narrative: Patient has firmness in the lower mid abdomen/suprapubic region concerning for urinary retention. The remainder of the abdomen is soft and there is no obvious pulsatile mass palpated Auscultation: normoactive bowel sounds Palpation: soft Extremity Extremity Narrative: Patient has chronic stasis changes to bilateral lower legs and +1-2 pitting edema that is equal and symmetric Neuro Neuro Narrative: Patient is at his baseline mental status per family with no new neurologic deficit Skin Skin Narrative: Chronic stasis changes to the bilateral lower legs as documented above MDM MDM MDM Narrative Medical decision making narrative: Patient presented to the ER febrile and he is tachycardic consistent with this. He was on a nonrebreather and still satting in the mid to high 80s with increased work of breathing. Based on his history there is concern for developing pneumonia as well as worsening of congestive heart failure/fluid overload. With the fever there is concern for COVID or influenza so viral swab was obtained which was negative. His x-rays show changes consistent with worsening pneumonia. Secondary to his he was started on vancomycin and Zosyn. He does qualify for sepsis based on his fever tachycardia leukopenia and tachypnea. However as he is renal failure I elected to initially hold off on IV hydration as he did not want to make his respiratory distress any worse. The patient had a Alba catheter placed because his physical exam showed urinary distention. It resulted approximately 100 mL of urine. This also showed changes concerning for infection which vancomycin and Zosyn should cover. At this time the patient is still full code according to family. Secondary to this will be admitted to the ICU for further care. The case was discussed with the hospitalist prior to this and he is agreeable to this plan. The patient was given rectal Tylenol in the temperature resolved and heart rate reduced but his blood pressure continued to drop and secondary to this he was given a 1 L fluid bolus which did help improve his blood pressure Lab Data Attestation: I reviewed the patient's lab results. Labs: Laboratory Results - last 24 hr 08/19/22 08/19/22 08/19/22 23:15 23:15 23:15 WBC 2.7 L RBC 2.91 L Hgb 8.8 L Hct 27.1 L MCV 93.1 MCH 30.2 MCHC 32.5 RDW Std Deviation 66.4 H RDW Coeff of Faiza 19.3 H Plt Count 153 MPV 9.3 Immature Gran % (Auto) 0.400 Neut % (Auto) 75.1 H Lymph % (Auto) 10.2 L [place] % (Auto) 13.5 H Eos % (Auto) 0.4 Baso % (Auto) 0.4 Absolute Neuts (auto) 2.1 Absolute Lymphs (auto) 0.28 L Nucleated RBC % 0 Diff Path Review May foll Anisocytosis 2+ Sodium 137 Potassium 4.2 Chloride 99 Carbon Dioxide 29.0 Anion Gap 9 BUN 30 H Creatinine 3.92 H Estim Creat Clear Calc 12.66 Est GFR (MDRD) Af Amer 19 L Est GFR (MDRD) Non-Af 16 L BUN/Creatinine Ratio 7.7 L Glucose 92 Lactic Acid 0.6 Calcium 8.6 Urine Color Urine Clarity Urine pH Ur Specific [place] Urine Protein Urine Glucose (UA) Urine Ketones Urine Occult Blood Urine Nitrite Urine Bilirubin Urine Urobilinogen Ur Leukocyte Esterase Urine RBC Urine WBC Ur Squamous Epith Cells Urine Bacteria Urine Mucus 08/19/22 23:25 WBC RBC Hgb Hct MCV MCH MCHC RDW Std Deviation RDW Coeff of Faiza Plt Count MPV Immature Gran % (Auto) Neut % (Auto) Lymph % (Auto) [place] % (Auto) Eos % (Auto) Baso % (Auto) Absolute Neuts (auto) Absolute Lymphs (auto) Nucleated RBC % Diff Path Review Anisocytosis Sodium Potassium Chloride Carbon Dioxide Anion Gap BUN Creatinine Estim Creat Clear Calc Est GFR (MDRD) Af Amer Est GFR (MDRD) Non-Af BUN/Creatinine Ratio Glucose Lactic Acid Calcium Urine Color Yellow Urine Clarity Clear Urine pH 6.5 Ur Specific [place] 1.010 Urine Protein 500 H Urine Glucose (UA) 50 H Urine Ketones Negative Urine Occult Blood 150 H Urine Nitrite Negative Urine Bilirubin Negative Urine Urobilinogen Normal Ur Leukocyte Esterase 500 H Urine RBC 0-5 SEEN Urine WBC 50-100 SEEN Ur Squamous Epith Cells 0-5 SEEN Urine Bacteria 2+ Urine Mucus 0 SEEN Radiography Diagnostic Testing: Clinical Impression(s) from Imaging Studies Chest X-Ray 08/19/22 23:33 IMPRESSION: 1. Minimal interval enlargement of the bilateral pleural effusions. 2. Worsening infiltrate in the retrocardiac portion of the left lower lobe, consistent with worsening pneumonia and atelectasis. 3. Development of minimal patchy airspace disease in the right infrahilar region, suspicious for developing pneumonia. Electronically Signed: David Miguel MD at 23:59 EST , 1 view chest x-ray as interpreted by the emergency medicine physician reveals bilateral pleural effusions slightly greater on the left and retrocardiac infiltrate concerning for pneumonia Critical Care Time Critical Care Time: Yes Critical care time (excluding procedures): Discussing w/Patient &/or Family/Bell[employer], Discussing w/Consultants, Performing Direct Patient Care at Bedside and - (Critical care time of 33 minutes) Discharge Plan Dx/Rx/DC Orders Clinical Impression: Acute respiratory failure with hypoxia, Septicemia, Pneumonia, Chronic kidney disease with end stage renal failure on dialysis, Pleural effusion, bilateral Disposition Disposition: [facility]
--- NOTE | 2022-08-20 02:34 | SEPSISATNOTE ---
Sepsis Attestation Sepsis Alert: Yes Sepsis Attestation: Agree w/Sepsis Possible Source of Sepsis: Pulmonary Sepsis Organ Dysfunction Criteria Present: SBP < 90 mmHg or MAP < 65 mmHg Fluid Resuscitation Fluid Resuscitation ordered: 30 ml/kg fluid bolus ordered Sepsis Note Date exam was performed: 08/20/22 Time exam was performed: 02:34 Sepsis Attestation: Sepsis re-evaluation was performed Response to fluids: Fluid responsive hypotension
[2022-08-20 02:36] LABS: Allen Test Positive; Base Excess 3 mmol/L (-2 to +2); Bicarbonate 29.7 mmol/L (22-26); Blood Gas Specimen Type ART; FI02 100; O2 Delivery Device BiPAP; PEEP 8; PO2 68 mmHG (75-100); RR 12; SITE R Brach; SO2 91 % (95-99); Total Carbon Dioxide 32 mmol/L; pCO2 59.3 mmHg (35-45); pH 7.31 (7.35-7.45)
--- NOTE | 2022-08-20 02:51 | NURSING ---
1L started by ems and finished with antibiotics.
[2022-08-20 04:49] LABS: Absolute Lymphocyte Count 0.37 X10^3/uL (0.83-4.51); Absolute Neutrophil Count 1.5 X10^3/uL (2.0-7.7); Basophil# 0.01 X10^3/uL; Basophil% 0.5 % (0-1); Hematocrit 26.7 % (40-54); Hemoglobin 8.3 g/dL (13.0-16.5); Lymphocyte # 0.37 X10^3/ul (0.83-4.51); Lymphocyte % 18.7 % (19-41); Mean Corp Hgb Conc 31.1 g/dL (32-36); Mean Corpuscular Hgb 29.9 pg (27.0-32.0); Mean Platelet Vol. 11.2 fl (6.2-12.0); Monocyte# 0.13 X10^3/uL; Monocyte% 6.6 % (0-10); NRBC Flagged by Analyzer 0 % (0-5); Neutrophil # 1.45 X10^3/uL (2.7-7.7); Neutrophil % 73.2 % (47-70); POSITIVE DIFFERENTIAL YES; POSITIVE MORPHOLOGY YES; Platelet Count 155 K/mm3 (150-450); RBC Distribution Width CV 19.9 % (11.6-14.6); RBC Distribution Width SD 69.4 fl (35.1-43.9); Red Blood Count 2.78 M/mm3 (4.6-6.2)
[2022-08-20 04:50] LABS: Differential Indicated SCAN CRITERIA MET
[2022-08-20 05:10] LABS: Anisocytosis 2+; Macrocytosis RARE
[2022-08-20 05:13] LABS: Hypochromasia 1+
[2022-08-20 06:24] LABS: Anion Gap 8 (5-15); BUN 31 mg/dL (7-18); BUN/Creat Ratio 8.1 RATIO (10-20); Calcium,Total 8.2 mg/dL (8.5-10.1); Chloride 101 mmol/L (98-107); Creatinine, Serum 3.83 mg/dL (0.70-1.30); EST Glomerular Filtration Rate 16 mL/min (>60); Est Glom Filt Rate - Afr Amer 19 mL/min (>60); Estimated Creatinine Clearance 11.96 ml/min; Glucose 88 mg/dL (74-106); Potassium 4.1 mmol/L (3.5-5.1); Sodium Level 138 mmol/L (136-145)
--- NOTE | 2022-08-20 07:15 | PCM.PN.HOSP ---
Reason for Visit Reason for Visit: Diagnoses Sepsis, unspecified organism (08/20/22) Pneumonia, unspecified organism (08/20/22) Acute respiratory failure with hypoxia (08/20/22) End stage renal disease (08/20/22) Dependence on renal dialysis (08/20/22) Subjective Subjective Follow-up for acute hypoxic respiratory failure and sepsis due to due to pneumonia Objective Data Objective Data Vital Signs: Vital Signs Temp Pulse Resp BP Pulse Ox O2 Del Method FiO2 97.9 F 100 20 H 102/65 94 Bi-pap 35 08/20/22 05:00 08/20/22 07:00 08/20/22 07:00 08/20/22 07:00 08/20/22 07:00 08/20/22 07:00 08/20/22 07:00 Oxygen Delivery Method Bi-pap Weight: 129 lb 13.636 oz Body Mass Index (BMI) 20.8 Intake & Output: Intake and Output for Last 24 Hours 08/18/22 08/19/22 08/20/22 23:59 23:59 23:59 Intake Total 1250.0113 / 1250.0113 Output Total 650 / 650 Balance 600.0113 / 600.0113 Lab / Micro Data Result Diagrams: 08/20/22 04:25 08/20/22 06:00 Labs: Laboratory Results - last 24 hr 08/19/22 23:15: WBC 2.7 L, RBC 2.91 L, Hgb 8.8 L, Hct 27.1 L, MCV 93.1, MCH 30.2, MCHC 32.5, RDW Std Deviation 66.4 H, RDW Coeff of Faiza 19.3 H, Plt Count 153, MPV 9.3, Immature Gran % (Auto) 0.400, Neut % (Auto) 75.1 H, Lymph % (Auto) 10.2 L, [place] % (Auto) 13.5 H, Eos % (Auto) 0.4, Baso % (Auto) 0.4, Absolute Neuts (auto) 2.1, Absolute Lymphs (auto) 0.28 L, Nucleated RBC % 0, Diff Path Review May foll, Anisocytosis 2+ 08/19/22 23:15: Sodium 137, Potassium 4.2, Chloride 99, Carbon Dioxide 29.0, Anion Gap 9, BUN 30 H, Creatinine 3.92 H, Estim Creat Clear Calc 12.66, Est GFR (MDRD) Af Amer 19 L, Est GFR (MDRD) Non-Af 16 L, BUN/Creatinine Ratio 7.7 L, Glucose 92, Calcium 8.6 08/19/22 23:15: Lactic Acid 0.6 08/19/22 23:25: Urine Color Yellow, Urine Clarity Clear, Urine pH 6.5, Ur Specific [place] 1.010, Urine Protein 500 H, Urine Glucose (UA) 50 H, Urine Ketones Negative, Urine Occult Blood 150 H, Urine Nitrite Negative, Urine Bilirubin Negative, Urine Urobilinogen Normal, Ur Leukocyte Esterase 500 H, Urine RBC 0-5 SEEN, Urine WBC 50-100 SEEN, Ur Squamous Epith Cells 0-5 SEEN, Urine Bacteria 2+, Urine Mucus 0 SEEN 08/20/22 04:25: WBC 2.0 L, RBC 2.78 L, Hgb 8.3 L, Hct 26.7 L, MCV 96.0 H, MCH 29.9, MCHC 31.1 L, RDW Std Deviation 69.4 H, RDW Coeff of Faiza 19.9 H, Plt Count 155, MPV 11.2, Immature Gran % (Auto) 1.000 H, Neut % (Auto) 73.2 H, Lymph % (Auto) 18.7 L, [place] % (Auto) 6.6, Eos % (Auto) 0.0, Baso % (Auto) 0.5, Absolute Neuts (auto) 1.5 L, Absolute Lymphs (auto) 0.37 L, Nucleated RBC % 0, Diff Path Review May foll, Hypochromasia 1+, Anisocytosis 2+, Macrocytosis RARE 08/20/22 04:25: Sodium Cancelled, Potassium Cancelled, Chloride Cancelled, Carbon Dioxide Cancelled, Anion Gap Cancelled, BUN Cancelled, Creatinine Cancelled, Estim Creat Clear Calc Cancelled, Est GFR (MDRD) Af Amer Cancelled, Est GFR (MDRD) Non-Af Cancelled, BUN/Creatinine Ratio Cancelled, Glucose Cancelled, Calcium Cancelled 08/20/22 06:00: Sodium 138, Potassium 4.1, Chloride 101, Carbon Dioxide 29.0, Anion Gap 8, BUN 31 H, Creatinine 3.83 H, Estim Creat Clear Calc 11.96, Est GFR (MDRD) Af Amer 19 L, Est GFR (MDRD) Non-Af 16 L, BUN/Creatinine Ratio 8.1 L, Glucose 88, Calcium 8.2 L Micro: Microbiology 08/19/22 23:24 Urine Catheter - Catheter Legionella Antigen - Final 08/19/22 23:24 Urine Catheter - Catheter Streptococcus pneumoniae Antigen (M - Final 08/19/22 23:30 Nasal Secretion SARS-CoV-2 & FLU Antigen (Rapid) - Final ABG Data ABG results: ABG 08/20/22 02:30 Specimen Type ART Sample Site R Brach pH 7.31 L Bicarbonate Actual 29.7 H Total CO2 32 Base Excess 3 H O2 Saturation 91 L O2 % 100 ABG pCO2 59.3 H ABG pO2 68 L Florin Test Positive Respiration Rate 12 O2 Delivery Device BiPAP POC PEEP 8 Radiography Diagnostic Testing: Radiology Impression Chest X-Ray 08/19/22 23:33 IMPRESSION: 1. Minimal interval enlargement of the bilateral pleural effusions. 2. Worsening infiltrate in the retrocardiac portion of the left lower lobe, consistent with worsening pneumonia and atelectasis. 3. Development of minimal patchy airspace disease in the right infrahilar region, suspicious for developing pneumonia. Electronically Signed: David Miguel MD at 23:59 EST , Physical Exam Narrative Seen and examined in the ICU. Patient on BiPAP and dyspneic therefore could not get much history. Physical exam General: Awake, short of breath, dyspneic. HEENT: Atraumatic, PERRLA, EOMI, Normocephalic Oral: On BiPA. Neck: Supple, No JVD, Negative Carotid Bruits Lungs: Air entry diminished in bilateral lung bases. Bilateral fine crepitations Cardiovascular: A-fib with RVR. Normal S1, Normal S2, No murmurs Abdomen: Bowel Sounds sluggish, Soft, Non Tender, Non-Distended : Alba catheter, turbid/thick urine, on hemodialysis. No renal angle or suprapubic tenderness Extremities: No edema, Capillary Refill Less than 3 Seconds Skin: Coccygeal unstageable wound. Decubitus ulcer. Bilateral heel on heel pad support. Musculoskeletal: Moderate muscle atrophy of thigh and calf muscles. ROM restricted. Neurological: Cranial nerves II-XII grossly intact, DTR 2+/4. Could not evaluate muscle strength Psych/Mental Status: Flat affect Assessment & Plan Assessment/Plan (1) Chronic kidney disease with end stage renal failure on dialysis: (2) Septicemia: (3) Pneumonia: (4) Acute respiratory failure with hypoxia: PLAN: Plan 86-year-old gentleman admitted in ICU with fever, shortness of breath, dyspnea at rest, hypoxia pulse ox 70% on room air, tachycardia requiring BiPAP with diagnosis of acute hypoxic respiratory failure and sepsis. 1. Acute hypoxemic respiratory failure requiring BiPAP: ABG 7.31/59/68 on BiPAP, PEEP 8 RR 12 suggestive of acute respiratory acidosis.Patient has history of COPD. On BiPAP. 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 2. Sepsis due to bilateral pneumonia: Chest x-ray initially reviewed and shows worsening progressive infiltrate in the retrocardiac and right infrahilar region suggestive of pneumonia. The patient presented with sepsis due to pneumonia with acute sepsis-related organ dysfunction as evidenced by acute hypoxic respiratory failure, hypotension). Patient has clinical indicators of being sick with fever, Tmax 102.9 F, tachypnea RR 32/m, tachycardia and leukopenia. Lactic acid normal 0.6. Patient was not given fluid bolus as per sepsis protocol because of ESRD on hemodialysis 3. A-fib with RVR probably precipitated by sepsis: Patient not on anticoagulation because of history of GI bleed. Started on amiodarone bolus and then drip. 4. Unstageable sacrococcygeal wound: Large sacrococcygeal decubitus ulcer with eschar Wet to dry dressing on sacrococcygeal area. Continue foam to bilateral heels. 5 End-stage renal disease on dialysis: Patient had last dialysis was on Saturday to 04/26/2023. Admissions Rn consulted. 6. Diabetes mellitus type 2: Glucose is 88 BMP. Accu-Chek ACHS and cover with Humalog sliding scale. 7. Hypertension: Currently, hypotension due to sepsis. Hold antihypertensive medications. 8. 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 Hemoglobin on baseline 8.8 on admission DVT prophylaxis: Subcutaneous Lovenox ordered. Total time of the visit including total time spent in counseling or coordination of care, (more than 50% of the total time, spent in obtaining medical information from nurses and other ancillary care providers,explaining to the patient about labs, imaging, diagnosis and management of active complex medical conditions), discussion with design studio consultant and nephrology, review of labs and imaging is 50 minutes Charges/Coding Visit Charges Inpatient E&M: 09007 Subs Hosp L3
--- NOTE | 2022-08-20 07:25 | EX.PCM.CONCC ---
Assessment & Plan Assessment/Plan (1) Acute respiratory failure with hypoxia: (2) Septicemia: (3) Chronic kidney disease with end stage renal failure on dialysis: PLAN: Plan RECOMMENDATIONS: 1. Continue empiric antibiotics pending cultures 2. Hold on additional fluid boluses of possible 3. Hold on amiodarone for now. Would not recommend Cardizem given marginal blood pressures 4. Consult wound therapy for decubitus 5. Consult nephrology. Possible CVVH candidate 6. Continue baseline midodrine IMPRESSIONS: 1. Acute combined respiratory failure secondary to pneumonia ABG is showing a combined hypoxic and hypercarbic respiratory failure. Patient has responded well to BiPAP therapy, likely secondary to improved recruitment. If able to tolerate 30% FiO2, could attempt nasal cannula. Would not recommend aggressive fluid resuscitation given patient's respiratory status. Patient is on empiric antibiotics. Cultures are currently pending. 2. Sepsis secondary to pneumonia/multiple decubitus ulcers Evidence of endorgan damage through problem #1. Patient is on healthcare associated antibiotics given recent hospitalization. Wound nurse will be consulted secondary to decubitus ulcers. Would hold on fluid boluses as patient is at risk for worsening respiratory failure. Patient will be reinitiated on his baseline midodrine at a higher frequency given acute status. 3. A-fib with RVR Patient's heart rate is better controlled at this time. We will continue to control fever as this could stimulate. Patient will be placed on as needed bronchodilators to limit stimulation. Cannot exclude the need for amiodarone. Would not recommend Cardizem drip given patient's marginal blood pressures. 4. End-stage renal disease Patient with marginal blood pressures at this time. Nephrology has been consulted. Patient with no immediate indication for hemodialysis. Patient may require CVVH, but defer to nephrology. 5. Hypercholesterolemia/bilateral pleural effusions/advanced age/language barrier Complicates care, management, recovery and prognosis. Patient appears to be responding well to BiPAP therapy. We will hold on any thoracentesis at this time. We will need to check with family on dialect HPI Consult Data Date of Consult: 08/20/22 HPI Narrative Reason for Consultation: Hypoxic respiratory failure HPI Narrative: BONITA BEDOLLA is an 86 M, with past medical history listed below, who presents from a half-way to [facility] on 08/20/2022 secondary to worsening respiratory distress. Patient reportedly was admitted secondary to sepsis and developed end-stage renal disease in July. Patient was recently admitted to the hospital and noted to have fluid overload and was recently discharged back to the half-way. This morning, patient was noted to have increased work of breathing and noted that he was febrile with a pulse ox in the 70s. Given these findings, patient was transported to the ER for further evaluation. Patient is on midodrine at baseline secondary to hypotension. In the ER, patient was noted to have a temperature of 102.9 ?F and tachycardic at 145 bpm. Patient was normotensive at that time, but was initially requiring a nonrebreather to maintain saturations. Patient was placed on a BiPAP. Laboratory data showed a white blood cell count of 2.7, hemoglobin of 8.8 and a platelet count of 153. Chemistry showed an elevated creatinine of 3.92 with a lactate of 0.6. Urinalysis showed 2+ bacteria, white blood cells and an elevated leukocyte esterase. Chest x-ray showed minimal interval enlargement of bilateral effusions with a worsening retrocardiac infiltrate. Viral and COVID swabs were negative. Patient did have a Alba placed secondary to bladder distention resulting in 100 mL of urine. Patient was given vancomycin and Zosyn and admitted to acute care unit for further evaluation. Patient did have some hypotension and was treated with a 1 L fluid bolus. Since being in the intensive care unit, patient's oxygen status has improved. Patient is down to 35% FiO2 on his BiPAP. Patient has remained febrile throughout his ICU course. Patient was noted to have bilateral heel and coccyx wounds. Patient's blood pressure has been maintained with fluid boluses alone. No pressors have been initiated. Patient is unable to provide much additional information, such as review of systems, given language barrier and BiPAP therapy. REPLACED BY [facility] Medical History Afib Anemia Anxiety CKD (chronic kidney disease) stage V requiring chronic dialysis COPD (chronic obstructive pulmonary disease) GI bleed Hypertension Type 2 diabetes mellitus UTI (urinary tract infection) Home Medications acetylcysteine 200 mg/mL (20 %) solution 4 ml inhalation Q4H 08/11/22 [History Last Taken Unknown] atorvastatin 40 mg tablet 40 mg PO QHS 08/11/22 [History Last Taken Unknown] darbepoetin genia-albumin 60 mcg/0.3 mL in albumin injection syringe 60 mcg QWEEK 08/11/22 [History Last Taken Unknown] ipratropium 0.5 mg-albuterol 3 mg (2.5 mg base)/3 mL nebulization soln 3 ml inhalation Q6H PRN Wheezing 08/11/22 [History Last Taken Unknown] midodrine 10 mg tablet 10 mg PO QMWF 08/11/22 [History Last Taken Unknown] pantoprazole 40 mg tablet,delayed release 40 mg PO DAILY 08/11/22 [History Last Taken Unknown] rosuvastatin 20 mg tablet 20 mg PO DAILY 08/11/22 [History Last Taken Unknown] thiamine HCl (vitamin B1) 100 mg tablet 100 mg PO DAILY 08/11/22 [History Last Taken Unknown] vitamin B complex and vitamin C no.20-folic acid 1 mg capsule 1 cap PO DAILY 08/11/22 [History Last Taken Unknown] vitamin B complex and vitamin C no.20-folic acid 1 mg capsule 1 cap PO DAILY 08/19/22 [History Last Taken Unknown] Allergy/AdvReac Type Severity Reaction Status Date / Time No Known Allergies Allergy Verified 08/11/22 23:30 Surgical History History of right nephrectomy Social History housing: half-way Smoking Status: Never smoker alcohol intake: never substance use type: does not use ROS ROS Narrative See HPI Physical Exam Const alert and no apparent distress Constitutional Narrative: Nods head to some questions. Good BiPAP synchrony noted. HEENT normocephalic and head/scalp atraumatic Eyes PERRL, EOMs intact bilaterally and conjunctivae normal Neck full ROM, no lymphadenopathy and supple Resp Effort and Inspection: tachypneic Auscultation: rhonchi; Negative for rales or wheezes Cardio S1 normal heart sound, S2 normal heart sound, no murmurs, no rub and no gallops Rate: tachycardic GI normal to inspection, nondistended, normoactive bowel sounds Extremity no clubbing, cyanosis or edema Skin Skin Narrative: Coccyx and bilateral heel wounds noted. Neuro CN's II-XII intact bilaterally, moves all extremities and no focal motor deficits Psych cooperative Mood & Affect: flat affect Medical Records Data Attestation: I reviewed the patient's medical records Lab / Micro Data Attestation: I reviewed the patient's lab results. Result Diagrams: 08/20/22 04:25 08/20/22 06:00 Labs: Laboratory Results - last 24 hr 08/19/22 23:15: WBC 2.7 L, RBC 2.91 L, Hgb 8.8 L, Hct 27.1 L, MCV 93.1, MCH 30.2, MCHC 32.5, RDW Std Deviation 66.4 H, RDW Coeff of Faiza 19.3 H, Plt Count 153, MPV 9.3, Immature Gran % (Auto) 0.400, Neut % (Auto) 75.1 H, Lymph % (Auto) 10.2 L, [place] % (Auto) 13.5 H, Eos % (Auto) 0.4, Baso % (Auto) 0.4, Absolute Neuts (auto) 2.1, Absolute Lymphs (auto) 0.28 L, Nucleated RBC % 0, Diff Path Review November, Anisocytosis 2+ 08/19/22 23:15: Sodium 137, Potassium 4.2, Chloride 99, Carbon Dioxide 29.0, Anion Gap 9, BUN 30 H, Creatinine 3.92 H, Estim Creat Clear Calc 12.66, Est GFR (MDRD) Af Amer 19 L, Est GFR (MDRD) Non-Af 16 L, BUN/Creatinine Ratio 7.7 L, Glucose 92, Calcium 8.6 08/19/22 23:15: Lactic Acid 0.6 08/19/22 23:25: Urine Color Yellow, Urine Clarity Clear, Urine pH 6.5, Ur Specific [place] 1.010, Urine Protein 500 H, Urine Glucose (UA) 50 H, Urine Ketones Negative, Urine Occult Blood 150 H, Urine Nitrite Negative, Urine Bilirubin Negative, Urine Urobilinogen Normal, Ur Leukocyte Esterase 500 H, Urine RBC 0-5 SEEN, Urine WBC 50-100 SEEN, Ur Squamous Epith Cells 0-5 SEEN, Urine Bacteria 2+, Urine Mucus 0 SEEN 08/20/22 04:25: WBC 2.0 L, RBC 2.78 L, Hgb 8.3 L, Hct 26.7 L, MCV 96.0 H, MCH 29.9, MCHC 31.1 L, RDW Std Deviation 69.4 H, RDW Coeff of [place] 19.9 H, Plt Count 155, MPV 11.2, Immature Gran % (Auto) 1.000 H, Neut % (Auto) 73.2 H, Lymph % (Auto) 18.7 L, [place] % (Auto) 6.6, Eos % (Auto) 0.0, Baso % (Auto) 0.5, Absolute Neuts (auto) 1.5 L, Absolute Lymphs (auto) 0.37 L, Nucleated RBC % 0, Diff Path Review May foll, Hypochromasia 1+, Anisocytosis 2+, Macrocytosis RARE 08/20/22 04:25: Sodium Cancelled, Potassium Cancelled, Chloride Cancelled, Carbon Dioxide Cancelled, Anion Gap Cancelled, BUN Cancelled, Creatinine Cancelled, Estim Creat Clear Calc Cancelled, Est GFR (MDRD) Af Amer Cancelled, Est GFR (MDRD) Non-Af Cancelled, BUN/Creatinine Ratio Cancelled, Glucose Cancelled, Calcium Cancelled 08/20/22 06:00: Sodium 138, Potassium 4.1, Chloride 101, Carbon Dioxide 29.0, Anion Gap 8, BUN 31 H, Creatinine 3.83 H, Estim Creat Clear Calc 11.96, Est GFR (MDRD) Af Amer 19 L, Est GFR (MDRD) Non-Af 16 L, BUN/Creatinine Ratio 8.1 L, Glucose 88, Calcium 8.2 L Micro: Microbiology 08/19/22 23:24 Urine Catheter - Catheter Legionella Antigen - Final 08/19/22 23:24 Urine Catheter - Catheter Streptococcus pneumoniae Antigen (M - Final 08/19/22 23:30 Nasal Secretion SARS-CoV-2 & FLU Antigen (Rapid) - Final ABG Data ABG results: ABG 08/20/22 02:30 Specimen Type ART Sample Site R Brach pH 7.31 L Bicarbonate Actual 29.7 H Total CO2 32 Base Excess 3 H O2 Saturation 91 L O2 % 100 ABG pCO2 59.3 H ABG pO2 68 L Florin Test Positive Respiration Rate 12 O2 Delivery Device BiPAP POC PEEP 8 Attestation: I personally reviewed and interpreted this ABG as follows: (Acute on chronic hypercarbic respiratory acidosis with increased AA gradient) Radiology Impression Chest X-Ray 08/19/22 23:33 IMPRESSION: 1. Minimal interval enlargement of the bilateral pleural effusions. 2. Worsening infiltrate in the retrocardiac portion of the left lower lobe, consistent with worsening pneumonia and atelectasis. 3. Development of minimal patchy airspace disease in the right infrahilar region, suspicious for developing pneumonia. Electronically Signed: David Miguel MD at 23:59 EST , Charges/Coding Visit Charges Inpatient E&M: 73036 Init Hosp L3
[2022-08-20] MEDS: Enoxaparin 30 MG/0.3 ML Syringe SC (09:43)
[2022-08-20] MEDS: Midodrine HCl 5 MG Tablet 10 MG PO ×3 (09:43→17:17)
--- NOTE | 2022-08-20 09:51 | PCM.CONS.R ---
Assessment & Plan Assessment/Plan (1) ESRD (end stage renal disease): (2) Pneumonia: (3) Acute respiratory failure with hypoxia: PLAN: Plan Patient was admitted to the hospital after presenting to the emergency room with respiratory distress, pulse ox initially 70% on room air, patient was placed on BiPAP and breathing has improved, he is now on O2 per nasal cannula. We will continue to provide dialysis support, plan for dialysis today and attempt fluid removal as patient/blood pressure tolerates. Quite possibly dry weight will need to be lowered. Patient has un-stageable sacral decubitus. Patient is on IV antibiotics. Urine culture and blood cultures are pending. Blood pressure is low but acceptable on midodrine 10 mg 3 times daily. Patient receives iron and FLOR at dialysis, hemoglobin is 8.3. We will monitor hemoglobin trends. Further orders forthcoming as hospitalization evolves. HPI Consult Data Date of Consult: 08/20/22 HPI Narrative HPI Narrative: BONITA BEDOLLA, is a 86 M who was brought to the ER from [facility] for evaluation of shortness of breath and respiratory distress. ABG: combined hypoxic and hypercarbic respiratory failure, patient was initially placed on BiPAP and admitted to ICU. His respiratory status has improved and he is now on nasal cannula. Chest x-ray showed bilateral effusions with worsening retrocardiac infiltrate. We were consulted for dialysis needs. Patient has a history of ESRD and is currently dialyzing at [facility] on a Saturday schedule. He last dialyzed on Saturday. [facility] Medical History Afib Anemia Anxiety CKD (chronic kidney disease) stage V requiring chronic dialysis COPD (chronic obstructive pulmonary disease) GI bleed Hypertension Type 2 diabetes mellitus UTI (urinary tract infection) Home Medications acetylcysteine 200 mg/mL (20 %) solution 4 ml inhalation Q4H 08/11/22 [History Last Taken Unknown] atorvastatin 40 mg tablet 40 mg PO QHS 08/11/22 [History Last Taken Unknown] darbepoetin genia-albumin 60 mcg/0.3 mL in albumin injection syringe 60 mcg QWEEK 08/11/22 [History Last Taken Unknown] ipratropium 0.5 mg-albuterol 3 mg (2.5 mg base)/3 mL nebulization soln 3 ml inhalation Q6H PRN Wheezing 08/11/22 [History Last Taken Unknown] midodrine 10 mg tablet 10 mg PO QMWF 08/11/22 [History Last Taken Unknown] pantoprazole 40 mg tablet,delayed release 40 mg PO DAILY 08/11/22 [History Last Taken Unknown] rosuvastatin 20 mg tablet 20 mg PO DAILY 08/11/22 [History Last Taken Unknown] thiamine HCl (vitamin B1) 100 mg tablet 100 mg PO DAILY 08/11/22 [History Last Taken Unknown] vitamin B complex and vitamin C no.20-folic acid 1 mg capsule 1 cap PO DAILY 08/11/22 [History Last Taken Unknown] vitamin B complex and vitamin C no.20-folic acid 1 mg capsule 1 cap PO DAILY 08/19/22 [History Last Taken Unknown] Allergy/AdvReac Type Severity Reaction Status Date / Time No Known Allergies Allergy Verified 08/11/22 23:30 Surgical History History of right nephrectomy Social History housing: half-way Smoking Status: Never smoker alcohol intake: never substance use type: does not use ROS ROS Narrative Unable to obtain, see HPI and past medical history Physical Exam Narrative Alert, no apparent distress S1, S2, rhythm irregular, rate controlled Lung sounds clear anteriorly, diminished breath sounds bilateral posterior bases. No rhonchi or rales noted. On nasal cannula Abdomen soft, nontender, positive bowel sounds No pitting edema Tunneled HD catheter dressing clean, dry and intact Lab / Micro Data Result Diagrams: 08/20/22 04:25 08/20/22 06:00 Labs: Laboratory Results - last 24 hr 08/19/22 23:15: WBC 2.7 L, RBC 2.91 L, Hgb 8.8 L, Hct 27.1 L, MCV 93.1, MCH 30.2, MCHC 32.5, RDW Std Deviation 66.4 H, RDW Coeff of Faiza 19.3 H, Plt Count 153, MPV 9.3, Immature Gran % (Auto) 0.400, Neut % (Auto) 75.1 H, Lymph % (Auto) 10.2 L, [place] % (Auto) 13.5 H, Eos % (Auto) 0.4, Baso % (Auto) 0.4, Absolute Neuts (auto) 2.1, Absolute Lymphs (auto) 0.28 L, Nucleated RBC % 0, Diff Path Review November foll, Anisocytosis 2+ 08/19/22 23:15: Sodium 137, Potassium 4.2, Chloride 99, Carbon Dioxide 29.0, Anion Gap 9, BUN 30 H, Creatinine 3.92 H, Estim Creat Clear Calc 12.66, Est GFR (MDRD) Af Amer 19 L, Est GFR (MDRD) Non-Af 16 L, BUN/Creatinine Ratio 7.7 L, Glucose 92, Calcium 8.6 08/19/22 23:15: Lactic Acid 0.6 08/19/22 23:25: Urine Color Yellow, Urine Clarity Clear, Urine pH 6.5, Ur Specific [place] 1.010, Urine Protein 500 H, Urine Glucose (UA) 50 H, Urine Ketones Negative, Urine Occult Blood 150 H, Urine Nitrite Negative, Urine Bilirubin Negative, Urine Urobilinogen Normal, Ur Leukocyte Esterase 500 H, Urine RBC 0-5 SEEN, Urine WBC 50-100 SEEN, Ur Squamous Epith Cells 0-5 SEEN, Urine Bacteria 2+, Urine Mucus 0 SEEN 08/20/22 04:25: WBC 2.0 L, RBC 2.78 L, Hgb 8.3 L, Hct 26.7 L, MCV 96.0 H, MCH 29.9, MCHC 31.1 L, RDW Std Deviation 69.4 H, RDW Coeff of Faiza 19.9 H, Plt Count 155, MPV 11.2, Immature Gran % (Auto) 1.000 H, Neut % (Auto) 73.2 H, Lymph % (Auto) 18.7 L, [place] % (Auto) 6.6, Eos % (Auto) 0.0, Baso % (Auto) 0.5, Absolute Neuts (auto) 1.5 L, Absolute Lymphs (auto) 0.37 L, Nucleated RBC % 0, Diff Path Review May foll, Hypochromasia 1+, Anisocytosis 2+, Macrocytosis RARE 08/20/22 04:25: Sodium Cancelled, Potassium Cancelled, Chloride Cancelled, Carbon Dioxide Cancelled, Anion Gap Cancelled, BUN Cancelled, Creatinine Cancelled, Estim Creat Clear Calc Cancelled, Est GFR (MDRD) Af Amer Cancelled, Est GFR (MDRD) Non-Af Cancelled, BUN/Creatinine Ratio Cancelled, Glucose Cancelled, Calcium Cancelled 08/20/22 06:00: Sodium 138, Potassium 4.1, Chloride 101, Carbon Dioxide 29.0, Anion Gap 8, BUN 31 H, Creatinine 3.83 H, Estim Creat Clear Calc 11.96, Est GFR (MDRD) Af Amer 19 L, Est GFR (MDRD) Non-Af 16 L, BUN/Creatinine Ratio 8.1 L, Glucose 88, Calcium 8.2 L Micro: Microbiology 08/19/22 23:24 Urine Catheter - Catheter Legionella Antigen - Final 08/19/22 23:24 Urine Catheter - Catheter Streptococcus pneumoniae Antigen (M - Final 08/19/22 23:30 Nasal Secretion SARS-CoV-2 & FLU Antigen (Rapid) - Final ABG Data ABG results: ABG 08/20/22 02:30 Specimen Type ART Sample Site R Brach pH 7.31 L Bicarbonate Actual 29.7 H Total CO2 32 Base Excess 3 H O2 Saturation 91 L O2 % 100 ABG pCO2 59.3 H ABG pO2 68 L Florin Test Positive Respiration Rate 12 O2 Delivery Device BiPAP POC PEEP 8 Radiology Impression Chest X-Ray 08/19/22 23:33 IMPRESSION: 1. Minimal interval enlargement of the bilateral pleural effusions. 2. Worsening infiltrate in the retrocardiac portion of the left lower lobe, consistent with worsening pneumonia and atelectasis. 3. Development of minimal patchy airspace disease in the right infrahilar region, suspicious for developing pneumonia. Electronically Signed: David Miguel MD at 23:59 EST ,
--- NOTE | 2022-08-20 09:54 | CASEMGMT ---
POA paper copies on front of chart, living will provision is initialed. Pt's is listed as POStella, son is second and daughter Anisha is third. CALVIN Denise
--- NOTE | 2022-08-20 09:56 | CASEMGMT ---
Addendum entered by Nereida Lopez 08/20/22 10:34: Social Work SW spoke w/Chanelle from [facility]. Pt does get dialysis on site there. As per Chanelle, prior to pt's stay w/[facility], he was at a different assisted facility. The family did not like it and made a change to [facility]. SW will continue to follow. CALVIN Denise Original Note: Social Work SW participated in ICU rounds, daughter Laura participated via speakerphone. Daughter did confirm pt is here from [facility]. Dr. Bethea spoke w/daughter about having a family meeting, the plan is for a family meeting tomorrow at 1pm. There is POA form in chart, Pheng is listed as POA, then [place] and Crystal Sis[place]phanh is listed as third. As per Laura, Boo is pt's , she does not speak Andorran. The children will all be here tomorrow for the family meeting and they will communicate w/the , she is not able to come for the meeting tomorrow, as it is too much for her. As per Laura, they all will make decisions together. She is not sure if the plan will be for pt to return to [facility] at discharge or not, Laura explains pt has been in and out already a few times, and it just keeps repeating. Laura thought it would be good to speak w/SW tomorrow when family is here. SW will prepare a assisted facility list for family via [employer], of assisted facilities in the area in pt's insurance network, complete w/quality and resource use data, for SW to provide to family tomorrow. SW will hold off on sending updates until family can confirm they would like pt to return to [facility], or would like a referral sent elsewhere. SW will continue to follow. CALVIN Denise
--- NOTE | 2022-08-20 10:11 | PCM.RX.CS ---
Consult Type of Consult: New start Suspected Infection: Sepsis Prior Doses of Antibiotics Received/Current Regimen: Vancomycin 1000mg x1 dose given @ 23:48 08/19/22 Labs: Sodium 138 mmol/L (136-145) 08/20/22 06:00 Potassium 4.1 mmol/L (3.5-5.1) 08/20/22 06:00 Chloride 101 mmol/L (98-107) 08/20/22 06:00 Carbon Dioxide 29.0 mmol/L (21.0-32.0) 08/20/22 06:00 Anion Gap 8 (5-15) 08/20/22 06:00 BUN 31 mg/dL (7-18) H 08/20/22 06:00 Creatinine 3.83 mg/dL (0.70-1.30) H 08/20/22 06:00 Est GFR (MDRD) Af Amer 19 mL/min (>60) L 08/20/22 06:00 Est GFR (MDRD) Non-Af 16 mL/min (>60) L 08/20/22 06:00 BUN/Creatinine Ratio 8.1 RATIO (10-20) L 08/20/22 06:00 Glucose 88 mg/dL (74-106) 08/20/22 06:00 Microbiology: Microbiology 08/19/22 23:24 Urine Catheter - Catheter Legionella Antigen - Final 08/19/22 23:24 Urine Catheter - Catheter Streptococcus pneumoniae Antigen (M - Final 08/19/22 23:30 Nasal Secretion SARS-CoV-2 & FLU Antigen (Rapid) - Final Goal Trough: 15-20 mcg/mL Pharmacy Plan for Drug Dosing: NEW START IV VANCOMYCIN Consulting Physician: Dr. Nato Buenrostro Indication: Sepsis Goal Trough: 15-20 SrCr: 3.83 CrCl: HD MTuWF Comments: Received Vancomycin 1000mng x1 dose 23:48 08/19/22 Vancomycin Dose: 500mg x1 dose following HD session today Pending Level: Random Vancomycin level @ 0600 08/22/22 Pharmacy Service will continue to monitor and adjust dosing as required. Labs to be done on [date and time ordered]: Random Vancomycin level @ 0600 08/22/22
--- NOTE | 2022-08-20 11:31 | WOUNDNOTE ---
wound photo: sacrum
--- NOTE | 2022-08-20 11:33 | WOUNDNOTE ---
wound photo: right heel
--- NOTE | 2022-08-20 11:34 | WOUNDNOTE ---
wound photo: left heel
[2022-08-20 13:01] LABS: Pathologist Review Reviewed
[2022-08-20 13:04] LABS: Pathologist Review Reviewed
[2022-08-20] MEDS: Heparin 10,000 UNITS/10 ML Vial IV (15:48)
--- NOTE | 2022-08-20 15:50 | DIALYSIS ---
Hemodialysis x 3hrs completed. -1500ml UF. Stable t/o. See HD flowsheet. Report to Essence BENNETT
[2022-08-20] MEDS: Vancomycin IV 500 MG/100 ML BAG 100 MG IV (17:11)
[2022-08-21] VITALS (37 sets, daily range): BP systolic 72–96; BP diastolic 39–64; PULSE 97–120; RESP 12–29; TEMP 36.6–37.7; O2SAT 26–100
[2022-08-21 04:14] LABS: Absolute Lymphocyte Count 0.54 X10^3/uL (0.83-4.51); Basophil# 0.06 X10^3/uL; Basophil% 0.7 % (0-1); Eosinophil# 0.03 X10^3/uL; Eosinophils% 0.4 % (0-5); Hematocrit 27.5 % (40-54); Hemoglobin 8.5 g/dL (13.0-16.5); Lymphocyte # 0.54 X10^3/ul (0.83-4.51); Lymphocyte % 6.5 % (19-41); Mean Corp Hgb Conc 30.9 g/dL (32-36); Mean Corpuscular Hgb 29.5 pg (27.0-32.0); Mean Corpuscular Volume 95.5 fL (80-94); Mean Platelet Vol. 9.8 fl (6.2-12.0); Monocyte# 0.47 X10^3/uL; Monocyte% 5.7 % (0-10); NRBC Flagged by Analyzer 0 % (0-5); Neutrophil # 7.02 X10^3/uL (2.7-7.7); Neutrophil % 84.6 % (47-70); POSITIVE DIFFERENTIAL YES; POSITIVE MORPHOLOGY YES; Platelet Count 146 K/mm3 (150-450); RBC Distribution Width CV 19.9 % (11.6-14.6); RBC Distribution Width SD 69.4 fl (35.1-43.9); Red Blood Count 2.88 M/mm3 (4.6-6.2); White Blood Count 8.3 K/mm3 (4.4-11.0)
[2022-08-21 04:16] LABS: Differential Indicated SCAN CRITERIA MET
[2022-08-21 04:27] LABS: Anion Gap 9 (5-15); BUN 19 mg/dL (7-18); BUN/Creat Ratio 7.9 RATIO (10-20); Calcium,Total 8.4 mg/dL (8.5-10.1); Chloride 101 mmol/L (98-107); Creatinine, Serum 2.39 mg/dL (0.70-1.30); EST Glomerular Filtration Rate 28 mL/min (>60); Est Glom Filt Rate - Afr Amer 33 mL/min (>60); Estimated Creatinine Clearance 19.17 ml/min; Glucose 67 mg/dL (74-106); Potassium 3.7 mmol/L (3.5-5.1); Sodium Level 138 mmol/L (136-145)
[2022-08-21 04:48] LABS: Acanthocytes RARE; Anisocytosis 1+; Differential Comment SCANNED; Hypochromasia RARE; Macrocytosis 1+
--- NOTE | 2022-08-21 07:14 | PN.CC_ITS ---
Assessment & Plan Assessment/Plan (1) Acute respiratory failure with hypoxia: (2) Septicemia: (3) Chronic kidney disease with end stage renal failure on dialysis: PLAN: Plan RECOMMENDATIONS: 1. Continue empiric antibiotics pending cultures 2. Hold on additional fluid boluses of possible 3. Hold on amiodarone for now. Would not recommend Cardizem given marginal blood pressures 4. Consult wound therapy for decubitus 5. Appreciate nephrology input 6. Continue baseline midodrine 7. Await family meeting at 1 PM today about goals of therapy IMPRESSIONS: 1. Acute combined respiratory failure secondary to pneumonia ABG is showing a combined hypoxic and hypercarbic respiratory failure. Patient has responded well to BiPAP therapy, likely secondary to improved recruitment. Patient's oxygenation did respond to fluid removal yesterday. However, patient did present with high fevers and leukopenia, so would continue antibiotics until cultures are negative at a minimum. 2. Sepsis secondary to pneumonia/multiple decubitus ulcers Evidence of endorgan damage through problem #1. Patient is on healthcare associated antibiotics given recent hospitalization. Wound nurse will be consulted secondary to decubitus ulcers. Would hold on fluid boluses as patient is at risk for worsening respiratory failure. Patient will be continued on his baseline midodrine at a higher frequency given acute status. This can be decreased over the next 1 to 2 weeks. 3. A-fib with RVR Patient's heart rate is better controlled at this time. We will continue to control fever as this could stimulate. Patient will be placed on as needed bronchodilators to limit stimulation. Patient has had intermittent episodes of SVT 4. End-stage renal disease Patient with marginal blood pressures at this time. Nephrology has been consulted. Patient with no immediate indication for hemodialysis. Appreciate nephrology input. Patient able to tolerate dialysis yesterday. 5. Hypercholesterolemia/bilateral pleural effusions/advanced age/language barrier Complicates care, management, recovery and prognosis. We will hold on any thoracentesis at this time. Patient is reportedly from [facility]. Family has reques khai a meeting today at 1 PM to discuss her current hospitalization, goals of therapy and prognosis. Addendum 3 PM: Family meeting with multiple family members including POA, children and siblings. Family expressed concerns that the patient was walking in May and has now progressed to the point that he cannot move out of the bed. Several questions were answered over the course of the meeting, but ultimately the family has decided that the patient should be DNR Comfort Care arrest with no intubation at this time. Patient can be started on pressors, but no central line will be placed. There is some concern that some family members may take until morning to arrive and family would like to hold off on comfort measures until that time. Total discussion time and arrangements took over 50 minutes. Subjective Subjective Patient did well overnight. Patient did have some intermittent episodes of SVT that resolved spontaneously. Patient was able to tolerate hemodialysis with 1.5 L removed. Patient is denying any chest pain at this time. Patient has been able to take intermittent p.o. Patient was able to take off BiPAP this morning and is breathing comfortably on nasal cannula. Objective Data Objective Data Vital Signs: Vital Signs Temp Pulse Resp BP Pulse Ox O2 Del Method O2 Flow Rate 36.8 C 99 24 H 92/46 L 97 Nasal Cannula 3 08/21/22 06:00 08/21/22 06:00 08/21/22 06:00 08/21/22 06:00 08/21/22 06:00 08/21/22 06:00 08/21/22 06:00 FiO2 35 08/21/22 03:00 Oxygen Flow Rate (L/min) 3 Oxygen Delivery Method Nasal Cannula Weight: 59.8 kg Body Mass Index (BMI) 20.8 Intake & Output: Intake and Output for Last 24 Hours 08/19/22 08/20/22 08/21/22 23:59 23:59 23:59 Intake Total 1667.5113 / 1667.5113 50 / 50 Output Total 2305 / 2315 Balance -637.4887 / -647.4887 40 / 40 Lab / Micro Data Attestation: I reviewed the patient's lab results. Result Diagrams: 08/21/22 04:04 08/21/22 04:04 Labs: Laboratory Results - last 24 hr 08/19/22 23:15: Diff Path Review Reviewed 08/20/22 04:25: Diff Path Review Reviewed 08/21/22 04:04: WBC 8.3, RBC 2.88 L, Hgb 8.5 L, Hct 27.5 L, MCV 95.5 H, MCH 29.5, MCHC 30.9 L, RDW Std Deviation 69.4 H, RDW Coeff of Faiza 19.9 H, Plt Count 146 L, MPV 9.8, Immature Gran % (Auto) 2.100 H, Neut % (Auto) 84.6 H, Lymph % (Auto) 6.5 L, [place] % (Auto) 5.7, Eos % (Auto) 0.4, Baso % (Auto) 0.7, Absolute Neuts (auto) 7.0, Absolute Lymphs (auto) 0.54 L, Nucleated RBC % 0, Differential Comment SCANNED, Hypochromasia RARE, Anisocytosis 1+, Macrocytosis 1+, Acanthoc ytes (Spur) RARE 08/21/22 04:04: Sodium 138, Potassium 3.7, Chloride 101, Carbon Dioxide 28.0, Anion Gap 9, BUN 19 H, Creatinine 2.39 H, Estim Creat Clear Calc 19.17, Est GFR (MDRD) Af Amer 33 L, Est GFR (MDRD) Non-Af 28 L, BUN/Creatinine Ratio 7.9 L, Glucose 67 L, Calcium 8.4 L Micro: Microbiology 08/19/22 23:24 Urine Catheter - Catheter Legionella Antigen - Final 08/19/22 23:24 Urine Catheter - Catheter Streptococcus pneumoniae Antigen (M - Final 08/19/22 23:30 Nasal Secretion SARS-CoV-2 & FLU Antigen (Rapid) - Final Physical Exam Const alert and no apparent distress Constitutional Narrative: Nods head to questions. Appears comfortable on nasal cannula HEENT normocephalic and head/scalp atraumatic Eyes PERRL, EOMs intact bilaterally and conjunctivae normal Neck full ROM, no lymphadenopathy and supple Resp Effort and Inspection: Negative for labored or actively coughing Auscultation: Negative for rales, rhonchi or wheezes Cardio regular rate, S1 normal heart sound, S2 normal heart sound, no murmurs, no rub and no gallops GI normal to inspection, nondistended, normoactive bowel sounds Extremity no clubbing, cyanosis or edema Skin Skin Narrative: Coccyx and bilateral heel wounds noted. Neuro CN's II-XII intact bilaterally, moves all extremities and no focal motor deficits Neuro Narrative: Patient does not appear to have left-sided weakness on my evaluation Psych cooperative Mood & Affect: flat affect Charges/Coding Visit Charges Inpatient E&M: 47258 Subs Hosp L3 Multi Select Codes Hospitalists' Procedures Procedures: 08508 Advncd Care Plan 30 Min and 70577 Advncd Care Plan addl 30 Min
[2022-08-21] MEDS: Midodrine HCl 5 MG Tablet 10 MG PO (08:09)
[2022-08-21] MEDS: Enoxaparin 30 MG/0.3 ML Syringe SC (08:09)
[2022-08-21] MEDS: Pantoprazole Sodium 40 MG Tablet PO (08:09)
[2022-08-21] MEDS: Thiamine Hydrochloride 100 MG Tablet PO (08:09)
--- NOTE | 2022-08-21 10:44 | PCM.PN.REN ---
Subjective Subjective Resting quietly. Sitting up in bed. On nasal cannula. No overnight events. Objective Data Objective Data Vital Signs: Vital Signs Temp Pulse Resp BP Pulse Ox O2 Del Method O2 Flow Rate 97.9 F 118 H 28 H 88/62 L 89 Bi-pap 3 08/21/22 10:00 08/21/22 10:00 08/21/22 10:00 08/21/22 10:00 08/21/22 10:00 08/21/22 10:00 08/21/22 09:00 FiO2 35 08/21/22 03:00 Oxygen Flow Rate (L/min) 3 Oxygen Delivery Method Bi-pap Weight: 59.8 kg Body Mass Index (BMI) 20.8 Intake & Output: Intake and Output for Last 24 Hours 08/19/22 08/20/22 08/21/22 23:59 23:59 23:59 Intake Total 1667.5113 / 1667.5113 146.5 / 146.5 Output Total 2305 / 2315 1510 / 1510 Balance -637.4887 / -647.4887 -1363.5 / -1363.5 Lab / Micro Data Result Diagrams: 08/21/22 04:04 08/21/22 04:04 Labs: Laboratory Results - last 24 hr 08/19/22 23:15: Diff Path Review Reviewed 08/20/22 04:25: Diff Path Review Reviewed 08/21/22 04:04: WBC 8.3, RBC 2.88 L, Hgb 8.5 L, Hct 27.5 L, MCV 95.5 H, MCH 29.5, MCHC 30.9 L, RDW Std Deviation 69.4 H, RDW Coeff of Faiza 19.9 H, Plt Count 146 L, MPV 9.8, Immature Gran % (Auto) 2.100 H, Neut % (Auto) 84.6 H, Lymph % (Auto) 6.5 L, [place] % (Auto) 5.7, Eos % (Auto) 0.4, Baso % (Auto) 0.7, Absolute Neuts (auto) 7.0, Absolute Lymphs (auto) 0.54 L, Nucleated RBC % 0, Differential Comment SCANNED, Hypochromasia RARE, Anisocytosis 1+, Macrocytosis 1+, Acanthocytes (Spur) RARE 02/14/23 04:04: Sodium 138, Potassium 3.7, Chloride 101, Carbon Dioxide 28.0, Anion Gap 9, BUN 19 H, Creatinine 2.39 H, Estim Creat Clear Calc 19.17, Est GFR (MDRD) Af Amer 33 L, Est GFR (MDRD) Non-Af 28 L, BUN/Creatinine Ratio 7.9 L, Glucose 67 L, Calcium 8.4 L Micro: Microbiology 08/19/22 23:24 Urine Catheter - Catheter Legionella Antigen - Final 08/19/22 23:24 Urine Catheter - Catheter Streptococcus pneumoniae Antigen (M - Final 08/19/22 23:30 Nasal Secretion SARS-CoV-2 & FLU Antigen (Rapid) - Final Physical Exam Narrative Alert, no apparent distress S1, S2, rhythm irregular, rate controlled Lung sounds clear anteriorly. No rhonchi or rales noted. On nasal cannula Abdomen soft, nontender, positive bowel sounds No pitting edema Tunneled HD catheter dressing clean, dry and intact Assessment & Plan Assessment/Plan (1) ESRD (end stage renal disease): (2) Pneumonia: (3) Acute respiratory failure with hypoxia: PLAN: Plan -ESRD on hemodialysis at [facility] Saturday, Saturday, Saturday, Saturday schedule. Patient tolerated dialysis yesterday with 1.5 L fluid removal. We had been attempting 2 L fluid removal but towards end of HD treatment blood pressure dropped and fluid removal backed off. Quite possibly dry weight will be lowered. We will plan for next dialysis tomorrow with fluid removal as patient/blood pressure will tolerate. -Respiratory insufficiency. Improving. Pulse ox initially 70% on room air, patient was placed on BiPAP and breathing has improved, he is now on O2 per nasal cannula. Patient is on IV antibiotics. Blood cultures, urine culture pending. -Hypotension; continue midodrine. - Patient has un-stageable sacral decubitus. -History of anemia of chronic disease. Patient received iron and FLOR at dialysis, hemoglobin is 8.5. We will monitor hemoglobin trends. -To have family meeting today per family request to discuss goals of care.
--- NOTE | 2022-08-21 13:15 | PN.HOSP_ITS ---
Reason for Visit Reason for Visit: Follow-up for acute hypoxic respiratory failure and sepsis Diagnoses Sepsis, unspecified organism (08/20/22) Pneumonia, unspecified organism (08/20/22) Acute respiratory failure with hypoxia (08/20/22) End stage renal disease (08/20/22) Dependence on renal dialysis (08/20/22) Subjective Subjective Follow-up for acute hypoxic respiratory failure and sepsis Patient on nasal cannula in the morning but BiPAP at nighttime. Patient still tachycardic. Blood pressure borderline low, 92/57-88/62. Patient visibly short of breath. Objective Data Objective Data Vital Signs: Vital Signs Temp Pulse Resp BP Pulse Ox O2 Del Method O2 Flow Rate 97.9 F 119 H 29 H 88/62 L 90 Bi-pap 3 08/21/22 10:00 08/21/22 10:52 08/21/22 10:52 08/21/22 10:00 08/21/22 10:52 08/21/22 10:00 08/21/22 09:00 FiO2 35 08/21/22 10:52 Oxygen Flow Rate (L/min) 3 Oxygen Delivery Method Bi-pap Weight: 131 lb 13.383 oz Body Mass Index (BMI) 20.8 Intake & Output: Intake and Output for Last 24 Hours 08/19/22 08/20/22 08/21/22 23:59 23:59 23:59 Intake Total 1667.5113 / 1667.5113 146.5 / 146.5 Output Total 2305 / 2315 1510 / 1510 Balance -637.4887 / -647.4887 -1363.5 / -1363.5 Lab / Micro Data Result Diagrams: 08/21/22 04:04 08/21/22 04:04 Labs: Laboratory Results - last 24 hr 08/21/22 04:04: WBC 8.3, RBC 2.88 L, Hgb 8.5 L, Hct 27.5 L, MCV 95.5 H, MCH 29.5, MCHC 30.9 L, RDW Std Deviation 69.4 H, RDW Coeff of Faiza 19.9 H, Plt Count 146 L, MPV 9.8, Immature Gran % (Auto) 2.100 H, Neut % (Auto) 84.6 H, Lymph % (Auto) 6.5 L, [place] % (Auto) 5.7, Eos % (Auto) 0.4, Baso % (Auto) 0.7, Absolute Neuts (auto) 7.0, Absolute Lymphs (auto) 0.54 L, Nucleated RBC % 0, Differential Comment SCANNED, Hypochromasia RARE, Anisocytosis 1+, Macrocytosis 1+, Acanthocytes (Spur) RARE 08/21/22 04:04: Sodium 138, Potassium 3.7, Chloride 101, Carbon Dioxide 28.0, Anion Gap 9, BUN 19 H, Creatinine 2.39 H, Estim Creat Clear Calc 19.17, Est GFR (MDRD) Af Amer 33 L, Est GFR (MDRD) Non-Af 28 L, BUN/Creatinine Ratio 7.9 L, Glucose 67 L, Calcium 8.4 L Micro: Microbiology 08/19/22 23:25 Urine Catheter - Alba Urine Culture - Preliminary GPC Poss Enterococcus sp 08/19/22 23:24 Urine Catheter - Catheter Legionella Antigen - Final 08/19/22 23:24 Urine Catheter - Catheter Streptococcus pneumoniae Antigen (M - Final 08/19/22 23:30 Nasal Secretion SARS-CoV-2 & FLU Antigen (Rapid) - Final Physical Exam Narrative Seen and examined in the ICU. No fever. Tachycardic Physical exam General: Awake, short of breath, dyspneic. HEENT: Atraumatic, PERRLA, EOMI, Normocephalic Oral: On nasal cannula. Oral mucosa dry. Neck: Supple, No JVD, Negative Carotid Bruits Lungs: Air entry diminished in bilateral lung bases. Bilateral fine crepitations. Abdominal respiratory pattern. Cardiovascular: A-fib with RVR. Normal S1, Normal S2, No murmurs Abdomen: Bowel Sounds sluggish, Soft, Non Tender, Non-Distended : Alba catheter clear urine. No renal angle or suprapubic tenderness Extremities: No edema, Capillary Refill Less than 3 Seconds Skin: Coccygeal unstageable wound. Decubitus ulcer. Bilateral heel on heel pad support. Musculoskeletal: Moderate muscle atrophy of thigh and calf muscles. ROM restricted. Neurological: Cranial nerves II-XII grossly intact, DTR 2+/4. Could not evaluate muscle strength Psych/Mental Status: Flat affect Assessment & Plan Assessment/Plan (1) Chronic kidney disease with end stage renal failure on dialysis: (2) Septicemia: (3) Pneumonia: (4) Acute respiratory failure with hypoxia: PLAN: Plan 86-year-old gentleman admitted in ICU with fever, shortness of breath, dyspnea at rest, hypoxia pulse ox 70% on room air, tachycardia requiring BiPAP with diagnosis of acute hypoxic respiratory failure and sepsis. 1. Acute hypoxemic respiratory failure requiring BiPAP: ABG 7.31/59/68 on BiPAP, PEEP 8 RR 12 suggestive of acute respiratory acidosis.Patient has history of COPD. On BiPAP. Toys Inspector regeneration operator consulted. 08/21: Breathing is better. On nasal cannula but patient requires BiPAP at night. 2. Sepsis due to bilateral pneumonia: Chest x-ray initially reviewed and shows worsening progressive infiltrate in the retrocardiac and right infrahilar region suggestive of pneumonia. The patient presented with sepsis due to pneumonia with acute sepsis-related organ dysfunction as evidenced by acute hypoxic respiratory failure, hypotension). Patient has clinical indicators of being sick with fever, Tmax 102.9 F, tachypnea RR 32/m, tachycardia and leukopenia. Lactic acid normal 0.6. Patient was not given fluid bolus as per sepsis protocol because of ESRD on hemodialysis 08/21: Urinary antigens are negative. Urine culture GPC possible Enterococcus 1500, below pathology range. 3. A-fib with RVR probably precipitated by sepsis: Patient not on antico agulation because of history of GI bleed. Started on amiodarone bolus and then drip. 08/21: Continue amiodarone. 4. Unstageable sacrococcygeal wound: Large sacrococcygeal decubitus ulcer with eschar Wet to dry dressing on sacrococcygeal area. Continue foam to bilateral heels. 08/21: Wound care nurse consult. 5 End-stage renal disease on dialysis: Patient had last dialysis was on Saturday to 04/26/2023. Commercial Lending Vice President consulted. 08/21: Commercial Lending Vice President consulted. Patient is on hemodialysis. But he still makes urine. 6. Diabetes mellitus type 2: Glucose is 88 BMP. Accu-Chek ACHS and cover with Humalog sliding scale. 08/21: Glucose on lower side 6788. Hypoglycemia. 7. Hypertension: Currently, hypotension due to sepsis. Hold antihypertensive medications. 8. 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 Hemoglobin on baseline 8.8 on admission DVT prophylaxis: Subcutaneous Lovenox ordered. Total time of the visit including total time spent in counseling or coordination of care, (more than 50% of the total time, spent in obtaining medical information from nurses and other ancillary care providers,explaining to the patient about labs, imaging, diagnosis and management of active complex medical conditions), discussion with ensemble member and nephrology, review of labs and imaging is 50 minutes Charges/Coding Visit Charges Inpatient E&M: 53761 Subs Hosp L3
--- NOTE | 2022-08-21 13:47 | CASEMGMT ---
Social Work This social services manager participating in family meeting with Dr. Bethea. Patient has four children and a , all where present during meeting. This social services manager broached topic of advanced directives. Patient son reports to have not spoken with patient trademark attorney yet to inquire if patient has a health care power of trademark attorney/living will or not. Patient is next of Kin and currently the medical decision maker, unless otherwise noted by family after speaking with trademark attorney. Plan is for patient to continue to be a full code and attempt transfer to an outside facility if a surgeon will accept patient. Dr. Bethea communicating to family that the MRI results are poor and patient outcome is poor. Family appear to understand current medical status for patient and believe that patient wishes would be to do everything. Dr. Bethea to reach out to outside hospitals to see if a neurosurgeon will accept patient. This social services manager collaborating with Phyllis BENNETT CM. Phyllis provided Dr. Bethea with list of hospitals that are in-network with patient insurance. Social Work to continue to follow as needed. Lacie ROE, [place]
--- NOTE | 2022-08-21 13:47 | CASEMGMT ---
Social Work This aids social worker participated in family meeting with Dr. Bethea and patient family. Patient with 13 family members present in meeting. Patient second HCPOA is patient son, and first HCPOA is patient spouse, Lena. Per family meeting family appears to defer to Air for decisions, including Lena. Family would like patient to be DNRCC-A, No Intubation. Family reports that if patient gets better plan is to return to [facility]. Family reports that there are other family members that they would like to be able to see patient before making any further decisions about comfort care measures for patient. Family report that other family members arrive on of this week. Dr. Bethea inquired about level of treatment, full care vs. comfort care. Family plans to discuss things further and let medical team know when they have a decision. At this point family continues to be agreeable with DNRCC-A, No Intubation. Hospice was discussed, briefly. Active support and listening provided. This aids social worker sent updated clinicals to [facility] via [employer]. PLAN: To be determined. Social Work to continue to follow. Lacie ROE, [place]
--- NOTE | 2022-08-21 15:47 | CASEMGMT ---
Social Work Per LAURA Askew is able to accept patient back. Lacie Mac MSW, [place]-[facility]
[2022-08-21 16:18] LABS: M R Staph aureus DNA By PCR Negative (Negative); Probe Check PASS; Specimen Processing Control PASS
[2022-08-22] VITALS (24 sets, daily range): BP systolic 78–100; BP diastolic 41–50; PULSE 101–113; RESP 8–30; TEMP 36.6–37.6; O2SAT 86–100
[2022-08-22 04:20] LABS: Absolute Lymphocyte Count 0.72 X10^3/uL (0.83-4.51); Basophil# 0.02 X10^3/uL; Basophil% 0.2 % (0-1); Eosinophil# 0.01 X10^3/uL; Eosinophils% 0.1 % (0-5); Hematocrit 29.9 % (40-54); Lymphocyte # 0.72 X10^3/ul (0.83-4.51); Lymphocyte % 5.8 % (19-41); Mean Corp Hgb Conc 30.1 g/dL (32-36); Mean Corpuscular Hgb 29.4 pg (27.0-32.0); Mean Corpuscular Volume 97.7 fL (80-94); Mean Platelet Vol. 10.1 fl (6.2-12.0); Monocyte# 0.56 X10^3/uL; Monocyte% 4.5 % (0-10); NRBC Flagged by Analyzer 0 % (0-5); Neutrophil # 10.97 X10^3/uL (2.7-7.7); POSITIVE MORPHOLOGY YES; Platelet Count 211 K/mm3 (150-450); RBC Distribution Width CV 19.6 % (11.6-14.6); RBC Distribution Width SD 71.1 fl (35.1-43.9); Red Blood Count 3.06 M/mm3 (4.6-6.2); White Blood Count 12.3 K/mm3 (4.4-11.0)
[2022-08-22 04:25] LABS: Differential Indicated SCAN CRITERIA MET
[2022-08-22 04:36] LABS: ALB/GLOB Ratio 0.3 RATIO (0.9-2.4); AST(SGOT) 26 U/L (15-37); Alanine Aminotransfer ALT/SGPT 16 U/L (16-61); Albumin, Serum 1.7 g/dL (3.2-5.0); Alkaline Phosphatase 94 U/L (45-117); Anion Gap 14 (5-15); BUN 29 mg/dL (7-18); BUN/Creat Ratio 9.1 RATIO (10-20); Calcium,Total 9.2 mg/dL (8.5-10.1); Chloride 102 mmol/L (98-107); Creatinine, Serum 3.17 mg/dL (0.70-1.30); EST Glomerular Filtration Rate 20 mL/min (>60); Est Glom Filt Rate - Afr Amer 24 mL/min (>60); Estimated Creatinine Clearance 13.86 ml/min; Globulin 4.9 g/dL (2.2-4.2); Glucose 86 mg/dL (74-106); Potassium 3.9 mmol/L (3.5-5.1); Protein, Total 6.6 g/dL (6.4-8.2); Sodium Level 140 mmol/L (136-145)
[2022-08-22 04:40] LABS: Differential Comment SCANNED
[2022-08-22 04:42] LABS: Anisocytosis 1+; Burr Cells 1+; Hypochromasia 1+; Ovalocyte RARE; Schistocytes RARE
--- NOTE | 2022-08-22 07:18 | PN.CC_ITS ---
Assessment & Plan Assessment/Plan (1) Acute respiratory failure with hypoxia: (2) Septicemia: (3) Chronic kidney disease with end stage renal failure on dialysis: PLAN: Plan RECOMMENDATIONS: 1. Continue empiric antibiotics pending cultures 2. Continue peripheral Levophed 3. Add stress dose steroids 4. Consult wound therapy for decubitus 5. Appreciate nephrology input 6. Continue baseline midodrine 7. Potential palliative measures tomorrow pending family arrival IMPRESSIONS: 1. Acute combined respiratory failure secondary to pneumonia ABG is showing a combined hypoxic and hypercarbic respiratory failure. Patient has responded well to BiPAP therapy, likely secondary to improved recruitment. Patient's oxygenation did respond to fluid removal yesterday. However, patient did present with high fevers and leukopenia, so would continue antibiotics until cultures are negative at a minimum. 2. Septic shock secondary to pneumonia/multiple decubitus ulcers Evidence of endorgan damage through problem #1. Patient is on healthcare associated antibiotics given recent hospitalization. Wound nurse will be consulted secondary to decubitus ulcers. Patient currently on pressor therapy. We will add stress dose steroids for relative adrenal insufficiency. Family is very clear that they want to minimize invasive procedures, so no central line has been placed. Patient's fevers are much improved compared to previous. 3. A-fib with RVR Heart rate slightly elevated at this time, likely secondary to pressors. We will continue to control fever as this could stimulate. Patient will be placed on as needed bronchodilators to limit stimulation. Patient has had intermittent episodes of SVT 4. End-stage renal disease Patient with marginal blood pressures at this time. Nephrology has been consulted. Patient with no immediate indication for hemodialysis. Appreciate nephrology input. Patient able to tolerate dialysis yesterday. 5. Hypercholesterolemia/bilateral pleural effusions/advanced age/language barrier Complicates care, management, recovery and prognosis. We will hold on any thoracentesis at this time. Patient is reportedly from [facility]. Plan as of right now is to continue with aggressive measures, with modifications, hoping that family members can arrive on . At that time, likely transition to palliative measures. TIME: 32 minutes critical care time spent addressing patient septic shock, respiratory failure, A-fib, ESRD, review of all data and collaboration with care team Subjective Subjective Patient has done okay overnight. Patient has been on BiPAP for much of the evening. Patient did have to be initiated on Levophed secondary to hypotension. Patient will open his eyes and is denying any pain at this time. Patient did have dialysis yesterday. Family meeting yesterday. Tentative plan is to wait for family to come in on prior to transitioning to comfort measures. Objective Data Objective Data Vital Signs: Vital Signs Temp Pulse Resp BP Pulse Ox O2 Del Method O2 Flow Rate 37.1 C 112 H 28 H 92/48 L 93 Bi-pap 3 08/22/22 04:00 08/22/22 07:14 08/22/22 07:14 08/22/22 07:00 08/22/22 07:14 08/22/22 07:00 08/21/22 09:00 FiO2 25 08/22/22 07:14 Oxygen Flow Rate (L/min) 3 Oxygen Delivery Method Bi-pap Weight: 56.5 kg Body Mass Index (BMI) 20.8 Intake & Output: Intake and Output for Last 24 Hours 08/20/22 08/21/22 08/22/22 23:59 23:59 23:59 Intake Total 1667.5113 / 1667.5113 559.55 / 578.35 236.65 / 236.65 Output Total 2305 / 2315 1520 / 1520 Balance -637.4887 / -647.4887 -960.45 / -941.65 226.65 / 226.65 Lab / Micro Data Attestation: I reviewed the patient's lab results. Result Diagrams: 08/22/22 04:10 08/22/22 04:10 Labs: Laboratory Results - last 24 hr 08/21/22 09:30: MRSA (PCR) Negative 08/22/22 04:10: Random Vancomycin 16.0 H 08/22/22 04:10: WBC 12.3 H, RBC 3.06 L, Hgb 9.0 L, Hct 29.9 L, MCV 97.7 H, MCH 29.4, MCHC 30.1 L, RDW Std Deviation 71.1 H, RDW Coeff of Faiza 19.6 H, Plt Count 211, MPV 10.1, Immature Gran % (Auto) 0.400, Neut % (Auto) 89.0 H, Lymph % (Auto) 5.8 L, [place] % (Auto) 4.5, Eos % (Auto) 0.1, Baso % (Auto) 0.2, Absolute Neuts (auto) 11.0 H, Absolute Lymphs (auto) 0.72 L, Nucleated RBC % 0, Differential Comment SCANNED, Diff Path Review May foll, Hypochromasia 1+, Anisocytosis 1+, Ovalocytes RARE, Ola Cells 1+, Schistocytes RARE 08/22/22 04:10: Sodium 140, Potassium 3.9, Chloride 102, Carbon Dioxide 24.0, Anion Gap 14, BUN 29 H, Creatinine 3.17 H, Estim Creat Clear Calc 13.86, Est GFR (MDRD) Af Amer 24 L, Est GFR (MDRD) Non-Af 20 L, BUN/Creatinine Ratio 9.1 L, Glucose 86, Calcium 9.2, Total Bilirubin 0.50, AST 26, ALT 16, Alkaline Phosphatase 94, Total Protein 6.6, Albumin 1.7 L, Globulin 4.9 H, Albumin/Globulin Ratio 0.3 L Micro: Microbiology 08/19/22 23:25 Urine Catheter - Alba Urine Culture - Preliminary GPC Poss Enterococcus sp 08/19/22 23:24 Urine Catheter - Catheter Legionella Antigen - Final 08/19/22 23:24 Urine Catheter - Catheter Streptococcus pneumoniae Antigen (M - Final 08/19/22 23:30 Nasal Secretion SARS-CoV-2 & FLU Antigen (Rapid) - Final Physical Exam Const alert and no apparent distress Constitutional Narrative: Nods head to some questions. Good BiPAP synchrony noted. HEENT normocephalic and head/scalp atraumatic Eyes PERRL, EOMs intact bilaterally and conjunctivae normal Neck full ROM, no lymphadenopathy and supple Resp no use of accessory muscles Auscultation: diminished lung sounds; Negative for rales, rhonchi or wheezes Cardio S1 normal heart sound, S2 normal heart sound, no murmurs, no rub and no gallops Rate: tachycardic GI normal to inspection, nondistended, normoactive bowel sounds Extremity no clubbing, cyanosis or edema Skin Skin Narrative: Coccyx and bilateral heel wounds noted. Neuro CN's II-XII intact bilaterally, moves all extremities and no focal motor deficits Psych cooperative Mood & Affect: flat affect Charges/Coding Procedures Hospitalists Procedures: 01571 Critial Care 1st Hr
--- NOTE | 2022-08-22 09:08 | PCM.RX.CS ---
Consult Pharmacy has been consulted to manage selected antiobiotic: Vancomycin Type of Consult: Follow-up Suspected Infection: Sepsis, Pneumonia Prior Doses of Antibiotics Received/Current Regimen: Received 500mg iv x 1 post dialysis on 08.20.22 @1711. Labs: Sodium 140 mmol/L (136-145) 08/22/22 04:10 Potassium 3.9 mmol/L (3.5-5.1) 08/22/22 04:10 Chloride 102 mmol/L (98-107) 08/22/22 04:10 Carbon Dioxide 24.0 mmol/L (21.0-32.0) 08/22/22 04:10 Anion Gap 14 (5-15) 08/22/22 04:10 BUN 29 mg/dL (7-18) H 08/22/22 04:10 Creatinine 3.17 mg/dL (0.70-1.30) H 08/22/22 04:10 Est GFR (MDRD) Af Amer 24 mL/min (>60) L 08/22/22 04:10 Est GFR (MDRD) Non-Af 20 mL/min (>60) L 08/22/22 04:10 BUN/Creatinine Ratio 9.1 RATIO (10-20) L 08/22/22 04:10 Glucose 86 mg/dL (74-106) 08/22/22 04:10 Random Vancomycin 16.0 ug/mL (0.0-15.0) H 08/22/22 04:10 Microbiology: Microbiology 08/19/22 23:25 Urine Catheter - Alba Urine Culture - Final Vancomycin Resist. E. faecium 08/19/22 23:10 Blood Culture (Wb) - Anticubital Left Blood Culture - Preliminary No growth in 48 hours. 08/19/22 23:15 Blood Culture (Wb) - Anticubital Right Blood Culture - Preliminary No growth in 48 hours. 08/19/22 23:24 Urine Catheter - Catheter Legionella Antigen - Final 08/19/22 23:24 Urine Catheter - Catheter Streptococcus pneumoniae Antigen (M - Final 08/19/22 23:30 Nasal Secretion SARS-CoV-2 & FLU Antigen (Rapid) - Final Weight used for dosin.5 kg Estimated Creatinine Clearance: 14 ml/min Goal Trough: 15-20 mcg/mL Pharmacy Plan for Drug Dosing: Random level today was 16.0 (~35 hrs post dose). Have ordered 500mg iv x 1 post dialysis today per policy. Random level ordered for Sat. 08.24.22 before next dialysis session. Pharmacy Service will continue to monitor and adjust dosing as required. Follow-Up Labs: Trough Vancomycin - random 08.24.22 @0600
[2022-08-22] MEDS: Enoxaparin 30 MG/0.3 ML Syringe SC (10:31)
--- NOTE | 2022-08-22 11:10 | PCM.PN.REN ---
Subjective Subjective Seen on dialysis. On BiPAP. Opens eyes and responds to touch. Objective Data Objective Data Vital Signs: Vital Signs Temp Pulse Resp BP Pulse Ox O2 Del Method O2 Flow Rate 98.8 F 106 H 27 H 91/47 L 90 Bi-pap 3 08/22/22 08:00 08/22/22 09:39 08/22/22 09:39 08/22/22 09:00 08/22/22 09:39 08/22/22 09:00 08/21/22 09:00 FiO2 35 08/22/22 09:39 Oxygen Flow Rate (L/min) 3 Oxygen Delivery Method Bi-pap Weight: 56.5 kg Body Mass Index (BMI) 20.8 Intake & Output: Intake and Output for Last 24 Hours 08/20/22 08/21/22 08/22/22 23:59 23:59 23:59 Intake Total 1667.5113 / 1667.5113 559.55 / 578.35 274.25 / 274.25 Output Total 2305 / 2315 1520 / 1520 Balance -637.4887 / -647.4887 -960.45 / -941.65 264.25 / 264.25 Lab / Micro Data Result Diagrams: 08/22/22 04:10 08/22/22 04:10 Labs: Laboratory Results - last 24 hr 08/21/22 09:30: MRSA (PCR) Negative 08/22/22 04:10: Random Vancomycin 16.0 H 08/22/22 04:10: WBC 12.3 H, RBC 3.06 L, Hgb 9.0 L, Hct 29.9 L, MCV 97.7 H, MCH 29.4, MCHC 30.1 L, RDW Std Deviation 71.1 H, RDW Coeff of Faiza 19.6 H, Plt Count 211, MPV 10.1, Immature Gran % (Auto) 0.400, Neut % (Auto) 89.0 H, Lymph % (Auto) 5.8 L, [place] % (Auto) 4.5, Eos % (Auto) 0.1, Baso % (Auto) 0.2, Absolute Neuts (auto) 11.0 H, Absolute Lymphs (auto) 0.72 L, Nucleated RBC % 0, Differential Comment SCANNED, Diff Path Review May foll, Hypochromasia 1+, Anisocytosis 1+, Ovalocytes RARE, Benjamin Cells 1+, Schistocytes RARE 08/22/22 04:10: Sodium 140, Potassium 3.9, Chloride 102, Carbon Dioxide 24.0, Anion Gap 14, BUN 29 H, Creatinine 3.17 H, Estim Creat Clear Calc 13.86, Est GFR (MDRD) Af Amer 24 L, Est GFR (MDRD) Non-Af 20 L, BUN/Creatinine Ratio 9.1 L, Glucose 86, Calcium 9.2, Total Bilirubin 0.50, AST 26, ALT 16, Alkaline Phosphatase 94, Total Protein 6.6, Albumin 1.7 L, Globulin 4.9 H, Albumin/Globulin Ratio 0.3 L Micro: Microbiology 08/19/22 23:25 Urine Catheter - Alba Urine Culture - Final Vancomycin Resist. E. faecium 08/19/22 23:10 Blood Culture (Wb) - Anticubital Left Blood Culture - Preliminary No growth in 48 hours. 08/19/22 23:15 Blood Culture (Wb) - Anticubital Right Blood Culture - Preliminary No growth in 48 hours. 08/19/22 23:24 Urine Catheter - Catheter Legionella Antigen - Final 08/19/22 23:24 Urine Catheter - Catheter Streptococcus pneumoniae Antigen (M - Final 08/19/22 23:30 Nasal Secretion SARS-CoV-2 & FLU Antigen (Rapid) - Final Physical Exam Narrative Resting quietly, no apparent distress S1, S2, rhythm irregular, rate controlled Diminished breath sounds, on BiPAP Abdomen soft, positive bowel sounds No pitting edema Tunneled HD catheter dressing clean, dry and intact Assessment & Plan Assessment/Plan (1) ESRD (end stage renal disease): (2) Pneumonia: (3) Acute respiratory failure with hypoxia: PLAN: Plan -CODE STATUS is DNR CCA, no intubation. -ESRD on hemodialysis at [facility] Saturday, Saturday, Saturday, Saturday schedule. Patient tolerated dialysis Saturday with 1.5 L fluid removal. We had been attempting 2 L fluid removal Saturday but towards end of HD treatment blood pressure dropped and fluid removal backed off. Patient undergo hemodialysis today. Had been attempting fluid removal but due to low blood pressure fluid removal decreased and essentially patient will run even with HD today. Patient has some mottling in his fingers and toes -Respiratory insufficiency. Patient is back on BiPAP. Patient is on IV antibiotics. Blood cultures so far no growth. -Hypotension; now on Levophed max dose per peripheral line. - Patient has un-stageable sacral decubitus. -History of anemia of chronic disease. Patient received iron and FLOR at dialysis, hemoglobin is 8.5. We will monitor hemoglobin trends. -Had family meeting yesterday to discuss goals of care. Patient is DNR CCA. Awaiting further family members to come in today.
--- NOTE | 2022-08-22 11:32 | DIALYSIS ---
11:30 Hemodialysis x 2:10 - treatment [id number] early r/t hypotension (70s/40s) while on norepinephrine gtt (10 mcg/min). Treatment stopped and blood returned (vs. giving fluid boluses). Nephrology team aware. Net UF 0 (even). Blood returned to patient, BP 91/46 after blood returned. HD catheter ports closed with heparin. RN updated at bedside.
[2022-08-22] MEDS: Heparin 10,000 UNITS/10 ML Vial IV (12:39)
--- NOTE | 2022-08-22 12:49 | PN.HOSP_ITS ---
Reason for Visit Reason for Visit: Diagnoses Sepsis, unspecified organism (08/20/22) Pneumonia, unspecified organism (08/20/22) Acute respiratory failure with hypoxia (08/20/22) End stage renal disease (08/20/22) Dependence on renal dialysis (08/20/22) Subjective Subjective Follow-up for septic shock with acute combined respiratory failure secondary to pneumonia. Patient on maximum dose of Levophed drip. Patient's family does not want CVC catheter. Waiting for the family to come back for de-escalation of treatment. Objective Data Objective Data Vital Signs: Vital Signs Temp Pulse Resp BP Pulse Ox O2 Del Method O2 Flow Rate 98.1 F 104 H 18 78/46 L 92 Bi-pap 3 08/22/22 11:00 08/22/22 11:23 08/22/22 11:23 08/22/22 11:00 08/22/22 11:23 08/22/22 11:15 08/21/22 09:00 FiO2 60 08/22/22 11:23 Oxygen Flow Rate (L/min) 3 Oxygen Delivery Method Bi-pap Weight: 124 lb 8.979 oz Body Mass Index (BMI) 20.8 Intake & Output: Intake and Output for Last 24 Hours 08/20/22 08/21/22 08/22/22 23:59 23:59 23:59 Intake Total 1667.5113 / 1667.5113 559.55 / 578.35 316.55 / 316.55 Output Total 2305 / 2315 1520 / 1520 Balance -637.4887 / -647.4887 -960.45 / -941.65 306.55 / 306.55 Lab / Micro Data Result Diagrams: 08/22/22 04:10 08/22/22 04:10 Labs: Laboratory Results - last 24 hr 08/21/22 09:30: MRSA (PCR) Negative 08/22/22 04:10: Random Vancomycin 16.0 H 08/22/22 04:10: WBC 12.3 H, RBC 3.06 L, Hgb 9.0 L, Hct 29.9 L, MCV 97.7 H, MCH 29.4, MCHC 30.1 L, RDW Std Deviation 71.1 H, RDW Coeff of Faiza 19.6 H, Plt Count 211, MPV 10.1, Immature Gran % (Auto) 0.400, Neut % (Auto) 89.0 H, Lymph % (Auto) 5.8 L, Morris % (Auto) 4.5, Eos % (Auto) 0.1, Baso % (Auto) 0.2, Absolute Neuts (auto) 11.0 H, Absolute Lymphs (auto) 0.72 L, Nucleated RBC % 0, Differ ential Comment SCANNED, Diff Path Review May foll, Hypochromasia 1+, Anisocytosis 1+, Ovalocytes RARE, Benjamin Cells 1+, Schistocytes RARE 08/22/22 04:10: Sodium 140, Potassium 3.9, Chloride 102, Carbon Dioxide 24.0, Anion Gap 14, BUN 29 H, Creatinine 3.17 H, Estim Creat Clear Calc 13.86, Est GFR (MDRD) Af Amer 24 L, Est GFR (MDRD) Non-Af 20 L, BUN/Creatinine Ratio 9.1 L, Glucose 86, Calcium 9.2, Total Bilirubin 0.50, AST 26, ALT 16, Alkaline Phosphatase 94, Total Protein 6.6, Albumin 1.7 L, Globulin 4.9 H, Albumin/Globulin Ratio 0.3 L Micro: Microbiology 08/19/22 23:25 Urine Catheter - Alba Urine Culture - Final Vancomycin Resist. E. faecium 08/19/22 23:10 Blood Culture (Wb) - Anticubital Left Blood Culture - Preliminary No growth in 48 hours. 08/19/22 23:15 Blood Culture (Wb) - Anticubital Right Blood Culture - Preliminary No growth in 48 hours. 08/19/22 23:24 Urine Catheter - Catheter Legionella Antigen - Final 08/19/22 23:24 Urine Catheter - Catheter Streptococcus pneumoniae Antigen (M - Final 08/19/22 23:30 Nasal Secretion SARS-CoV-2 & FLU Antigen (Rapid) - Final Physical Exam Narrative No verbal communication or interaction. Patient is drowsy but also he is [place] from [facility]. Physical exam General: Awake, short of breath, dyspneic. Lethargy. HEENT: Atraumatic, PERRLA, EOMI, Normocephalic Oral: On BiPAP.? ?Neck: Supple, No JVD, Negative Carotid Bruits Lungs:? Air entry diminished in bilateral lung bases.? Bilateral fine crepitations.? Abdominal respiratory pattern. Cardiovascular: Hypotension. A-fib with RVR.? Normal S1, Normal S2, No murmurs Abdomen: Bowel Sounds sluggish, Soft, Non Tender, Non-Distended : Alba catheter, decreased urine. On hemodialysis.? No renal angle or suprapubic tenderness Extremities: No edema, Capillary Refill Less than 3 Seconds Skin: Coccygeal unstageable wound.? Decubitus ulcer.? Bilateral heel on heel pad support. Musculoskeletal: Moderate muscle atrophy of thigh and calf muscles.? ROM restricted. Neurological: Cranial nerves II-XII grossly intact, DTR? 2+/4.? Could not evaluate muscle strength Psych/Mental Status: Flat affect. drowsy and lethargic Assessment & Plan Assessment/Plan (1) Chronic kidney disease with end stage renal failure on dialysis: (2) Septicemia: (3) Pneumonia: (4) Acute respiratory failure with hypoxia: PLAN: Plan 86-year-old gentleman admitted in ICU with fever, shortness of breath, dyspnea at rest, hypoxia pulse ox 70% on room air, tachycardia requiring BiPAP? with diagnosis of acute hypoxic respiratory failure and sepsis. 1.? Acute hypoxemic respiratory failure requiring BiPAP: ABG 7.31/59/68 on BiPAP, PEEP 8 RR 12 suggestive of acute respiratory acidosis.Patient has history of COPD.? On BiPAP.? Camp Advisor photocomposing machine operator consulted. 08/21: Breathing is better.? On nasal cannula but patient requires BiPAP at night . 08/22: Patient on BiPAP. DNR CCA no intubation. 2.? Septic shock due to bilateral pneumonia: Chest x-ray initially reviewed and shows worsening progressive infiltrate in the retrocardiac and right infrahilar region suggestive of pneumonia.? The patient presented with sepsis due to pneumonia with acute sepsis-related organ dysfunction as evidenced by acute hypoxic respiratory failure, and hypotension.? Patient has clinical indicators of being sick with fever, Tmax 102.9 F, tachypnea RR 32/m, tachycardia and leukopenia.? Lactic acid normal 0.6.? Patient was not given fluid bolus as per sepsis protocol because of ESRD on hemodialysis 08/21: Urinary antigens are negative.? Urine culture GPC possible Enterococcus 1500, below pathology range. 08/22: Patient went into septic shock with maximum dose of Levophed drip. Family did not want CVC catheter or further escalation of treatment. Waiting for family member to come on and then probably de-escalation of treatment. Continue antibiotic. Stress dose of steroid. On midodrine. 3.? A-fib with RVR probably precipitated by sepsis: Patient not on anticoagulation because of history of GI bleed.? Started on amiodarone bolus and then drip. 08/21: Continue amiodarone. 08/22 heart rate is in 100s. 4.? Unstageable sacrococcygeal wound: Large sacrococcygeal decubitus ulcer with eschar Wet to dry dressing on sacrococcygeal area.? Continue foam? to bilateral heels. 08/21: Wound care nurse consult. 5 End-stage renal disease on dialysis: Patient had last dialysis was on Saturday to 04/26/2023.? Elevator Installer consulted. 08/21: Elevator Installer consulted.? Patient is on hemodialysis.? But he still makes urine. 08/22: Undergoing hemodialysis. 6.? Diabetes mellitus type 2: Glucose is 88 BMP.? Accu-Chek ACHS and cover with Humalog sliding scale. 08/21: Glucose on lower side 6788.? Hypoglycemia. 7.? Hypertension: Currently, hypotension due to sepsis.? Hold antihypertensive medications. 8.? 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 Hemoglobin on baseline 8.8 on admission DVT prophylaxis: Subcutaneous Lovenox ordered. Total time of the visit including total time spent in counseling or coordination of care, (more than 50% of the total time, spent in obtaining medical information from nurses and other ancillary care providers,explaining to the patient about labs, imaging, diagnosis and management of active complex medical conditions), discussion with associate director of sales and nephrology, review of labs and imaging is 50 minutes Charges/Coding Visit Charges Inpatient E&M: 41197 Subs Hosp L3
[2022-08-22 12:55] LABS: Pathologist Review Reviewed
--- NOTE | 2022-08-22 13:04 | NURSING ---
Spoke with patient's daughter Laura. Daughter stated that they are waiting for family to arrive at 1530 and then will most likely withdraw care at that time. Family requested that care just be maintained at this time.
--- NOTE | 2022-08-22 14:26 | WOUNDNOTE ---
Family coming in to decide further plans. the Mepilex to sacrum is due to be changed tomorrow 08/23/22 so will leave in place today. nursing aware to change as needed.
--- NOTE | 2022-08-22 16:37 | NURSING ---
Dr. Flores spoke with family about plan of care and withdrawing care. Dr. Flores stated that he will put in consult for hosipice but no need to call until tomorrow. This RN spoke with family about timing of withdrawing care and they stated they have one more family member coming and would like to wait until they arrive.
--- NOTE | 2022-08-22 17:12 | CPS ---
RN took BIPAP off, placed on NC. Pt taken off terminally.
--- NOTE | 2022-08-22 18:29 | NURSING ---
Patient passed at 1810. Absence of heart sounds noted by Kirill Jackson RN and Essence Cabrera RN
--- NOTE | 2022-08-22 19:41 | NURSING ---
[facility] called and given update on patient to Katja in [address]. Katja stated she would update appropriate staff.
--- NOTE | 2022-08-23 07:05 | PCM.DEATH ---
Preliminary Cause of Preliminary Cause of Preliminary Cause of : Septic shock due to pneumonia Acute combined respiratory failure secondary to pneumonia Bilateral healthcare associated pneumonia Date of Admission: 08/20/22 Date of : 08/22/22 Principle Diagnosis Problem List: Active and Suspected Problems (Updated 08/22/22 @ 00:03 by Background Dasharad) ESRD (end stage renal disease) (Acute) Septicemia (Acute) Pneumonia (Acute) Hospital Course 86-year-old gentleman admitted in ICU with fever, shortness of breath, dyspnea at rest, hypoxia pulse ox 70% on room air, tachycardia requiring BiPAP? with diagnosis of acute hypoxic respiratory failure and sepsis. 1.? Acute hypoxemic respiratory failure requiring BiPAP: ABG 7.31/59/68 on BiPAP, PEEP 8 RR 12 suggestive of acute respiratory acidosis.Patient has history of COPD.? On BiPAP.? [employer] Consultant institution librarian consulted. 08/21: Breathing is better.? On nasal cannula but patient requires BiPAP at night. 08/22: Patient on BiPAP.? DNR CCA no intubation. In the evening of 08/22 I had long discussion with family members.? Sons, [id number], multiple family members present in the conference room.? They asked about the prognosis which seems poor in view of septic shock with hypotension even on maximum dose of Levophed, and healthcare associated pneumonia, acute hypoxic respiratory failure, and other comorbidities which include A-fib, unstageable sacrococcygeal wound, end-stage renal disease on hemodialysis. They want withdrawal of BiPAP and Levophed drip and all the family members are there. Later in the evening, outpatient family's decision, BiPAP and Levophed drip was taken off. Patient very peacefully at 1810 hrs. on 08/22/2022. 2.? Septic shock due to bilateral healthcare associated pneumonia: Chest x-ray initially reviewed and shows worsening progressive infiltrate in the retrocardiac and right infrahilar region suggestive of pneumonia.? The patient presented with sepsis due to pneumonia with acute sepsis-related organ dysfunction as evidenced by acute hypoxic respiratory failure, and hypotension.? Patient has clinical indicators of being sick with fever, Tmax 102.9 F, tachypnea RR 32/m, tachycardia and leukopenia.? Lactic acid normal 0.6.? Patient was not given fluid bolus as per sepsis protocol because of ESRD on hemodialysis 08/21: Urinary antigens are negative.? Urine culture GPC possible Enterococcus 1500, below pathology range. 08/22: Patient went into septic shock with maximum dose of Levophed drip.? Family did not want CVC catheter or further escalation of treatment.? Waiting for family member to come on and then probably de-escalation of treatment.? Continue antibiotic.? Stress dose of steroid.? On midodrine. 3.? A-fib with RVR probably precipitated by sepsis: Patient not on anticoagulation because of history of GI bleed.? Started on amiodarone bolus and then drip. 08/21: Continue amiodarone. 08/22 heart rate is in 100s.? 4.? Unstageable sacrococcygeal wound: Large sacrococcygeal decubitus ulcer with eschar Wet to dry dressing on sacrococcygeal area.? Continue foam? to bilateral heels. 08/21: Wound care nurse consult. 5 End-stage renal disease on dialysis: Patient had last dialysis was on Saturday to 04/26/2023.? Air Conditioning Unit Tester consulted. 08/21: Air Conditioning Unit Tester consulted.? Patient is on hemodialysis.? But he still makes urine. 08/22: Undergoing hemodialysis. 6.? Diabetes mellitus type 2: Glucose is 88 BMP.? Accu-Chek ACHS and cover with Humalog sliding scale. 08/21: Glucose on lower side 6788.? Hypoglycemia. 7.? Hypertension: Currently, hypotension due to sepsis.? Hold antihypertensive medications. 8.? 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 Hemoglobin on baseline 8.8 on admission DVT prophylaxis: Subcutaneous Lovenox ordered. Patient peacefully in the presence of family member. Visit Charges Inpatient E&M: 48527 Disch Hosp >30min
== END 2022-08-22 18:10 | DRG 871 ==
LOC: ED 08-20 01:48 → ICU 08-20 01:55
PROVIDERS: Internal Medicine Critical Care Medicine; Admitting Provider Hospitalist; Emergency Provider Emergency Medicine; PCP Internal Medicine; Visit Provider Internal Medicine
DX: A41.9 Sepsis, unspecified organism (principal); J96.01 Acute respiratory failure with hypoxia; R65.21 Severe sepsis with septic shock; J96.02 Acute respiratory failure with hypercapnia; J18.9 Pneumonia, unspecified organism; N18.6 End stage renal disease; I12.0 Hypertensive chronic kidney disease with stage 5 chronic kidney disease or end stage renal disease; E27.40 Unspecified adrenocortical insufficiency; J44.0 Chronic obstructive pulmonary disease with (acute) lower respiratory infection; I47.1 Supraventricular tachycardia; L89.150 Pressure ulcer of sacral region, unstageable; E11.649 Type 2 diabetes mellitus with hypoglycemia without coma; D63.1 Anemia in chronic kidney disease; E11.22 Type 2 diabetes mellitus with diabetic chronic kidney disease; Z99.2 Dependence on renal dialysis; I48.91 Unspecified atrial fibrillation; E78.00 Pure hypercholesterolemia, unspecified; L89.626 Pressure-induced deep tissue damage of left heel; L89.611 Pressure ulcer of right heel, stage 1; I95.9 Hypotension, unspecified; Z66 Do not resuscitate; Y95 Nosocomial condition; Z79.899 Other long term (current) drug therapy
CPT/HCPCS: 36600; 51702; 71045; 80048; 80053; 80202; 81001; 82803; 83605; 85025; 87040; 87086; 87088; 87186; 87428; 87449; 87641; 90937; 92610; 93005; 94002; 94003; 94762; 97162; 97166; 97803; 99285; J7040; J7050; A4216; G0257; J3490